=== PATIENT | female | born 1985 | race Caucasian/White ===

== ENCOUNTER 2023-01-01 08:40 | Outpatient (OUT) | payer BC, SELFPAY ==
[2023-01-01 09:19] LABS: Basophils Absolute Auto 0.1 10^3/uL (0.0-0.1); Basophils Percent Auto 1.1 % (0.2-2.0); Eosinophils Absolute Auto 0.3 10^3/uL (0.0-0.7); Eosinophils Percent Auto 4.6 % (0.9-7.0); Hematocrit 40.8 % (36.0-48.0); Hemoglobin 12.3 g/dL (12.0-16.0); Immature Granulocytes Abs Auto 0.06 10^3/uL (0.00-0.03); Immature Granulocytes Pct Auto 0.8 % (0.0-0.5); Lymphocytes Absolute Auto 1.5 10^3/uL (1.2-3.8); Mean Corpuscular HGB Conc 30.1 g/dL (29.9-35.2); Mean Corpuscular Hemoglobin 19.6 pg (26.7-34.0); Mean Corpuscular Volume 65.2 fL (81.0-99.0); Mean Platelet Volume 9.3 fL (9.5-13.5); Monocytes Absolute Auto 0.6 10^3/uL (0.3-0.8); Monocytes Percent Auto 8.7 % (1.7-12.0); Neutrophils Absolute Auto 4.8 10^3/uL (1.4-6.5); Neutrophils Percent Auto 64.8 % (43.0-75.0); Platelet Count 387 10^3/uL (150-450); Red Blood Count 6.26 10^6/uL (4.20-5.40); Red Cell Distribution Width 15.8 % (11.0-15.0); White Blood Count 7.3 10^3/uL (4.0-11.0)
[2023-01-01 09:43] LABS: Estimated Average Glucose 108 mg/dL; Glycohemoglobin A1C 5.4 % (4.5-6.2)
[2023-01-01 10:14] LABS: Alanine Aminotransferase 32 U/L (14-59); Albumin Globulin Ratio 0.9; Albumin Level 3.8 g/dL (3.4-5.0); Alkaline Phosphatase 62 U/L (46-116); Anion Gap 13.1; Aspartate Amino Transferase 20 U/L (15-37); BUN Creatinine Ratio 11.8; Bilirubin Total 0.4 mg/dL (0.2-1.0); Calcium 9.3 mg/dL (8.5-10.1); Carbon Dioxide 26.5 mmol/L (21.0-32.0); Chloride 101 mmol/L (98-107); Chol HDL Ratio 2.5; Cholesterol 189 mg/dL (<=200); Estimated GFR (African America >60 (>=60); Estimated GFR (Non-African Ame >60 (>=60); Globulin 4.4 g/dL; Glucose 92 mg/dL (74-106); HDL Cholesterol 77 mg/dL (40-60); Potassium 3.6 mmol/L (3.5-5.1); Sodium 137 mmol/L (136-145); Thyroid Stimulating Hormone 3.837 uIU/mL (0.358-3.740); Total Protein 8.2 g/dL (6.4-8.2); Triglycerides 180 mg/dL (<=150)
== END 2023-01-01 08:41 | disposition home or self-care (01) ==
LOC: LAB 08:40
PROVIDERS: PCP Psychiatry & Neurology Neurology; Visit Provider Nurse Practitioner
DX: Z00.00 Encounter for general adult medical examination without abnormal findings (principal)
CPT/HCPCS: 36415; 80053; 80061; 83036; 84443; 85025

== ENCOUNTER 2023-02-27 13:32 | Outpatient (REF) | payer BC, SELFPAY ==
[2023-03-02 17:09] LABS: Age Gdln ACOG Testing Note (.); HPV Aptima Negative (Negative); IGP, Aptima HPV, rfx 16/18,45 Note (.)
== END 2023-02-27 13:33 | disposition home or self-care (01) ==
LOC: LAB 13:32
PROVIDERS: PCP Psychiatry & Neurology Neurology; Visit Provider Nurse Practitioner
DX: Z01.419 Encounter for gynecological examination (general) (routine) without abnormal findings (principal)
CPT/HCPCS: 87624; G0145

== ENCOUNTER 2023-03-13 14:13 | Outpatient (OUT) | payer BC, SELFPAY ==
[2023-03-13 14:52] LABS: Free T4 0.98 ng/dL (0.76-1.46)
[2023-03-13 14:59] LABS: Free T3 4.15 pg/mL (2.18-3.98); Thyroid Stimulating Hormone 1.009 uIU/mL (0.358-3.740)
== END 2023-03-13 14:14 | disposition home or self-care (01) ==
LOC: LAB 14:13
PROVIDERS: PCP Nurse Practitioner; Visit Provider Nurse Practitioner
DX: E03.9 Hypothyroidism, unspecified (principal)
CPT/HCPCS: 36415; 84439; 84443; 84481

== ENCOUNTER 2023-04-22 12:16 | Outpatient (OUT) | payer BC, SELFPAY ==
--- NOTE | 2023-04-22 12:18 | XR_ITS ---
The [address] [address] Patient Name: STEVEN DE LA TORRE MRN: [id number] date: 1985 Sex: F Assigned Patient Location: RAD Current Patient Location: RAD Accession/Order Number: [id number] Exam Date: 04/22/2023 12:22 Report Date: 04/22/2023 12:48 At the request of: MEGAN RODRÍGUEZ Procedure: XR abdomen 1V EXAM: XR abdomen 1V HISTORY: Ureteral Stone With Hydronephrosis COMPARISON: Single view abdomen study dated 03/13/2021 TECHNIQUE: AP supine view of the abdomen was obtained. FINDINGS: An approximately 6 x 2 mm calcification overlying the mid right kidney fairly similar to prior studies suspect for right renal calculus. Interval round 4 mm calcific density overlying the inferior left kidney which may represent left renal calculus. No obvious opaque ureteral or bladder calculi. Bowel gas pattern appears grossly nonspecific. Bony structures appear grossly intact. XR/XR abdomen 1V IMPRESSION: Findings suggesting calcified right renal calculus similar to the prior study. Possibility of interval calcified left renal calculus. Follow-up as needed. Electronically authenticated by: MABEL GOMEZ Date: 04/22/2023 12:48
== END 2023-04-22 12:17 | disposition home or self-care (01) ==
LOC: RAD 12:17
PROVIDERS: PCP Nurse Practitioner; Visit Provider Physician Assistant
DX: N13.2 Hydronephrosis with renal and ureteral calculous obstruction (principal); N20.0 Calculus of kidney
CPT/HCPCS: 74018

== ENCOUNTER 2024-02-08 09:11 | Outpatient (OUT) | payer BC, SELFPAY ==
--- OUTSIDE RECORDS SUMMARY | 2024-02-08 09:12 | XMS_ITS | CCD ---
Author Organization [facility] Care Team Providers Care Chalk Tester Name Role Phone YOVANI, DR SCAR Cervantes Primary Care Unavailable DESI FRASER, DR LISBET Akins Admitting Galileo KAYE JR, DR LISBET Akins Attending Unavailedie PINA, DR SCAR Cervantes Consulting Unavailable FANTASMA, DR RACHEL Broussard Consulting Unavailable DESI FRASER, DR LISBET Akins Consulting Galileo PINA, DR SCAR Cervantes Primary Care Unavailable DESI FRASER, DR LISBET Akins Admitting Galileo KAYE JR, DR LISBET Akins Consulting Galileo KAYE JR, DR LISBET Akins Attending UnavailHAYLEY Montemayor Admitting Unavailable YOVANI, DR SCAR Cervantes Primary Care Unavailable DESI FRASER, DR LISBET Akins Consulting UnavailHAYLEY Montemayor Attending Unavailable HAYLEY THOMAS Consulting Unavailable HAYLEY THOMAS Attending Unavailable WILLIAM, HAYLEY Admitting Unavailable HAYLEY THOMAS Consulting Unavailable YOVANI, DR SCAR Cervantes Primary Care Unavailable YOVANI, DR SCAR Cervantes Primary Care Unavailable KIKA, DR TAISHA Nicole Consulting Unavailable DESI FRASER, DR LISBET Akins Admitting Galileo KAYE JR, DR LISBET Akins Attending Galileo KAYE JR, DR LISBET Akins Consulting Galileo KAYE JR, DR LISBET Akins Attending Unavailedie KAYE JR, DR LISBET Akins Admitting Unavailedie PINA, DR SCAR Cervantes Primary Care Unavailable KIKA, DR TAISHA Nicole Consulting Unavailable DESI FRASER, DR LISBET Akins Consulting YOLANDA Sanchez Consulting Unavailable JUAN DIEGO VARGAS Consulting Unavailable DESI FRASER, DR LISBET Akins Attending Unavailedie KAYE JR, DR LISBET Akins Admitting Unavailedie KAYE JR, DR LISBET Akins Consulting Galileo PINA, DR SCAR Cervantes Primary Care Unavailable BILLY URIAS Consulting Unavailable JUAN DIEGO VARGAS Consulting Unavailable YOVANI, DR SCAR Cervantes Primary Care Unavailable DESI FRASER, DR LISBET Akins Attending Unavailedie KAYE JR, DR LISBET Akins Admitting Unavailedie KAYE JR, DR LISBET Akins Consulting LOS Santillan Attending Unavailable JO-ANN, LOS Admitting Unavailable Allan Eaton Consulting Unavailable YOVANI, DR SCAR Cervantes Primary Care Unavailable LOS BUSCH Consulting Unavailable HAYLEY THOMAS Attending Unavailable HAYLEY THOMAS Admitting Unavailable YOVANI, DR SCAR Cervantes Primary Care Unavailable FANTASMA, DR RACHEL Broussard Consulting Unavailable HAYLEY THOMAS Consulting Unavailable DESI FRASER, DR LISBET Akins Attending Unavailedie KAYE JR, DR LISBET Akins Admitting Unavailedie KAYE JR, DR LISBET Akins Consulting Unavailedie PINA, DR SCAR Cervantes Primary Care Unavailable SEAN MCCABE Consulting Unavailable WILLIAM, HAYLEY Admitting Unavailable FANTASMA, DR RACHEL Broussard Consulting Unavailable YOVANI, DR SCAR Cervantes Primary Care Unavailable WILLIAM, HAYLEY Attending Unavailable HAYLEY THOMAS Consulting Unavailable YOVANI, DR SCAR Cervantes Attending Unavailable YOVANI, DR SCAR Cervantes Admitting Unavailable YOVANI, DR SCAR Cervantes Primary Care Unavailable YOVANI, DR SCAR Cervantes Consulting Unavailable Becca Anguiano Primary Care Physician Unavailable Primary Care Provider UnavailKEIKO Palumbo Attending Unavailable Annmarie, MITCH Akins Attending Unavailable Annmarie, MITCH Akins Attending Unavailable KEIKO RODRÍGUEZ Attending Unavailable AURORA TURNER Attending Unavailable Allergies Allergy Classification Reported Allergen(s) Allergy Type Date of Onset Reaction(s) Facility (1 source) No Known Medication Allergies; Translations: [No Known Medication Allergies] Propensity to adverse reactions (disorder) [facility] Medications Current Medications Medication Drug Class(es) Dates Sig (Normalized) Sig (Original) acetaZOLAMIDE 250 mg oral tablet (3 sources) Carbonic Anhydrase Inhibitor Start: 04-08-2019 take 2 tablets by mouth twice daily acetaZOLAMIDE 250 mg Tab 500 mg = 2 tab(s), Oral, BID Start Date: 04/08/19 Status: Ordered adapalene/benzoyl peroxide/clindamycin 0.3%-2.5%-1% topical gel (1 source) Start: 06-20-2023 apply 45 g topically once daily adapalene/benzoyl peroxide/clindamyc in 0.3%-2.5%-1% topical gel See Instructions, 45 gm, Refill(s) 1, apply thin layer to affected areas once daily after washing, [facility]/pharmacy #[id number], 170, cm, 04/23/23 8:29:00 EST, Height/Length Dosing, 107, kg, 04/23/23 8:29:00 EST, Weight Dosing Start Date: 06/20/23 Status: Ordered amphetamine aspartate 5 mg / amphetamine sulfate 5 mg / dextroamphetamine saccharate 5 mg / dextroamphetamine sulfate 5 mg oral tablet (5 sources) Central Nervous System Stimulant Start: 11-11-2023 take 1 tablet by mouth once daily amphetamine-dextro amphetamine 20 mg Tab See Instructions, TAKE 1 TABLET BY MOUTH EVERYDAY AT 2PM, # 90 tab(s), Refills(s) 0, Pharmacy: [facility]/pharmacy #[id number], 170, cm, 04/23/23 8:29:00 EST, Height/Length Dosing, 107, kg, 04/23/23 8:29:00 EST, Weight Dosing Start Date: 11/11/23 Status: Ordered Start: 11-11-2023 take 1 capsule by mo ut once daily in the morning Adderall XR 30 mg Cap-ER 30 mg = 1 cap(s), Oral, qAM, # 90 cap(s), Refills(s) 0, Pharmacy: [facility]/pharmacy #[id number], 170, cm, 04/23/23 8:29:00 EST, Height/Length Dosing, 107, kg, 04/23/23 8:29:00 EST, Weight Dosing Start Date: 11/11/23 Status: Ordered Start: 04-04-2023 take 1 capsule by mo [facility] once daily in the morning Adderall XR 30 mg Cap-ER 30 mg = 1 cap(s), Oral, qAM, # 90 cap(s), Refills(s) 0, Pharmacy: [facility]/pharmacy #[id number], 169, cm, 02/27/23 11:32:00 EDT, Height/Length Dosing, 109.7, kg, 02/27/23 11:32:00 EDT, Weight Dosing Start Date: 04/04/23 Status: Ordered Start: 09-28-2022 take 1 tablet by zach once daily amphetamine-dextroamphetamine 20 mg Tab See Instructions, TAKE 1 TABLET BY MOUTH EVERYDAY AT 2PM, # 90 tab(s), Refills(s) 0, Pharmacy: [facility]/pharmacy #[id number], 169, cm, 02/27/23 11:32:00 EDT, Height/Length Dosing, 109.7, kg, 02/27/23 11:32:00 EDT, Weight Dosing Start Date: 04/04/23 Status: Ordered 24 hr buPROPion hydrochloride 150 mg extended release oral tablet (1 source) Aminoketone Start: 09-28-2022 End: 12-16-2023 take 1 tablet by mouth every twenty-four hours Wellbutrin XL 150 MG 24 hr tablet Take 150 mg by mouth. 0 09/28/2022 12/16/2023 Active cetirizine hydrochloride 10 mg oral tablet (3 sources) Histamine-1 Receptor Antagonist Start: 04-23-2023 cetirizine 10 mg Tab Refills(s) 0 Start Date: 04/23/23 Status: Ordered Start: 04-19-2023 take 2 tablets by mo [facility] once daily in the morning cetirizine (ZyrTEC) 10 MG tablet Indications: Flexural atopic dermatitis TAKE 2 TABLETS BY MOUTH EVERY MORNING AND 2 TABLETS AT BEDTIME 360 tablet 3 04/19/2023 Active 1 ml erenumab-aooe 140 mg/ml auto-injector (2 sources) Start: 09-28-2022 Aimovig SureClick Autoinjector-aooe 140 mg/mL subcutaneous solution 140 mg, Refills(s) 0 Start Date: 09/28/22 Status: Ordered escitalopram 10 mg oral tablet (3 sources) Serotonin Reuptake Inhibitor Start: 09-24-2023 take 1 tablet by mouth once daily escitalopram 10 mg Tab 10 mg = 1 tab(s), Oral, Daily, # 90 tab(s), Refills(s) 0, Pharmacy: [facility]/pharmacy #[id number], 170, cm, 04/23/23 8:29:00 EST, Height/Length Dosing, 107, kg, 04/23/23 8:29:00 EST, Weight Dosing Start Date: 09/24/23 Status: Ordered Start: 04-04-2023 take 1 tablet by zach once daily escitalopram 10 mg Tab 10 mg = 1 tab(s), Oral, Daily, # 30 tab(s), Refills(s) 0, Pharmacy: [facility]/pharmacy #[id number], 169, cm, 02/27/23 11:32:00 EDT, Height/Length Dosing, 109.7, kg, 02/27/23 11:32:00 EDT, Weight Dosing Start Date: 04/04/23 Status: Ordered Start: 04-01-2023 take 1 tablet by zach th once daily escitalopram 5 mg oral tablet 5 mg = 1 tab(s), Oral, Daily, # 30 tab(s), Refills(s) 5, Pharmacy: [facility]/pharmacy #[id number], 169, cm, 02/27/23 11:32:00 EDT, Height/Length Dosing, 109.7, kg, 02/27/23 11:32:00 EDT, Weight Dosing Start Date: 04/01/23 Status: Ordered 1.5 ml fremanezumab-vfrm 150 mg/ml auto-injector (1 source) Start: 12-19-2022 Ajovy 225 MG/1 .5ML auto-injector INJECT SUBCUTANEOUSLY ONCE A MONTH DIRECTED 0 12/19/2022 Active hydrocortisone 25 mg/ml topical cream (1 source) Corticosteroid Start: 06-21-2023 hydrocortisone 2.5 % cream Indications: Flexural atopic dermatitis APPLY WET CLOTH TO SKIN AROUND EYE FOR 5 MIN. THEN APPLY CREAM. DO THIS TWICE DAILY FOR 28 DAYS 28.35 g 3 06/21/2023 Active Start: 06-21-2023 hydrocortisone 2.5 % cream Indications: Flexural atopic dermatitis APPLY WET CLOTH TO SKIN AROUND EYE FOR 5 MIN. THEN APPLY CREAM. DO THIS TWICE DAILY FOR 28 DAYS 28.35 g 3 06/21/2023 Active levothyroxine sodium 0.1 mg oral tablet (1 source) l-Thyroxine levothyroxine (Synthroid) 100 MCG tablet 1 (one) time each day at the same time. 0 Active thyroid (group home) 90 mg oral tablet (2 sources) Start: 06-21-2023 take 1 tablet by mouth once daily [place] Thyroid 90 mg Tab 90 mg = 1 tab(s), Oral, Daily, # 90 tab(s), Refills(s) 3, Pharmacy: [facility]/pharmacy #[id number], 170, cm, 04/23/23 8:29:00 EST, Height/Length Dosing, 107, kg, 04/23/23 8:29:00 EST, Weight Dosing Start Date: 06/21/23 Status: Ordered Start: 04-08-2019 take 1 tablet by mouth once da young [place] Thyroid 90 mg Tab 90 mg = 1 tab(s), Oral, Daily Start Date: 04/08/19 Status: Ordered Completed/Discontinued Medications Medication Drug Class(es) Dates Sig (Normalized) Sig (Original) drospirenone / Ethinyl Estradiol (3 sources) Progestin, Estrogen Start: 03-12-2023 take 1 tablet by mouth once daily drospirenone-ethi nyl estradiol 3 mg-0.03 mg Tab 1 tab(s), Oral, Daily, 84 tab(s), Refill(s) 3, [facility]/pharmacy #[id number], 169, cm, 02/27/23 11:32:00 EDT, Height/Length Dosing, 109.7, kg, 02/27/23 11:32:00 EDT, Weight Dosing Start Date: 03/12/23 Status: Ordered Start: 12-17-2022 drospirenone-e thinyl estradiol (Lakia, Ocella) 3-0.03 MG tablet Take 1 tablet by mouth in the morning. 0 12/17/2022 Active fluconazole 150 mg oral tablet (1 source) Azole Antifungal Start: 07-18-2023 take 4 tablets by mouth once Diflucan 150 mg Tab 150 mg = 1 tab(s), Oral, Once, take 1 tab on day one and 1 tab on day four, # 2 tab(s), Refills(s) 1, Pharmacy: [facility]/pharmacy #[id number], 170, cm, 04/23/23 8:29:00 EST, Height/Length Dosing, 107, kg, 04/23/23 8:29:00 EST, Weight Dosing Start Date: 07/18/23 Status: Ordered predniSONE 20 mg oral tablet (2 sources) Start: 12-21-2022 take 1 tablet by mouth once daily predniSONE 20 mg Tab 20 mg = 1 tab(s), Oral, As Directed, Take two tabs by mouth daily for three days, then one tab daily for three days, # 9 tab(s), Refills(s) 0, Pharmacy: [facility]/pharmacy #[id number], 169, cm, 12/21/22 14:35:00 EDT, Height/Length Dosing, 103.7, kg, 12/21/22 14:35:00 EDT, Weight Dosing Start Date: 12/21/22 Status: Ordered Problems Active Problems Problem Classification Problem Date Documented Date Episodic/Chronic Abdominal pain (11 sources) Pelvic and perineal pain; Translations: [Unspecified abdominal pain] Onset: 07-14-2020 Episodic Allergic reactions (2 sources) Flexural atopic dermatitis; Translations: [Other atopic dermatitis] Onset: 12-28-2022 06-21-2023 Chronic Anxiety disorders (2 sources) Anxiety 02-27-2023 Chronic Attention-deficit, conduct, and disruptive behavior disorders (2 sources) Adult attention deficit hyperactivity disorder 04-08-2019 Chronic Attention-deficit, conduct, and disruptive behavior disorders (2 sources) Attention deficit hyperactivity disorder 12-24-2022 Chronic Biliary tract disease (4 sources) Biliary calculus; Translations: [Chronic cholecystitis with calculus] 04-20-2019 Episodic Calculus of urinary tract (12 sources) Calculus of kidney; Translations: [Calculus of ureter] Onset: 08-10-2020 Episodic Deficiency and other anemia (2 sources) Thalassemia 04-08-2019 Chronic Deficiency and other anemia (2 sources) Anemia 07-15-2020 Episodic Esophageal disorders (1 source) Gastro-esophageal reflux disease without esophagitis; Translations: [GERD WITHOUT ESOPHAGITIS] Onset: 07-22-2020 Chronic Genitourinary symptoms and ill-defined conditions (1 source) Encounter for fitting and adjustment of urinary device; Translations: [END FITTING AND ADJUST URINARY DEVICE] Onset: 08-15-2020 Chronic Genitourinary symptoms and ill-defined conditions (3 sources) Asymptomatic microscopic hematuria; Translations: [Nocturia] Onset: 08-15-2020 09-09-2020 Episodic Nausea and vomiting (3 sources) Nausea with vomiting, unspecified; Translations: [Nausea and vomiting] Onset: 07-22-2020 04-20-2019 Episodic Other diseases of kidney and ureters (2 sources) Hydronephrosis due to ureteral obstruction 07-15-2020 Episodic Other nervous system disorders (2 sources) Benign intracranial hypertension 04-08-2019 Chronic Other nutritional; endocrine; and metabolic disorders (1 source) Obesity, unspecified; Translations: [OBESITY UNSPECIFIED] Onset: 08-15-2020 Chronic Other nutritional; endocrine; and metabolic disorders (1 source) Body mass index (BMI) 35.0-35.9, adult; Translations: [BODY MASS INDEX BMI 35.0-35.9 ADULT] Onset: 08-15-2020 Chronic Other nutritional; endocrine; and metabolic disorders (1 source) Body mass index (BMI) 36.0-36.9, adult; Translations: [BODY MASS INDEX BMI 36.0-36.9 ADULT] Onset: 07-22-2020 Chronic Other nutritional; endocrine; and metabolic disorders (2 sources) Obese class II 04-20-2019 Chronic Other screening for suspected conditions (not mental disorders or infectious disease) (4 sources) Encounter for screening for malignant neoplasm of cervix; Translations: [ENC SCREENING MALIG NEOPLASM CERV] Onset: 12-26-2020 Episodic Thyroid disorders (9 sources) Hypothyroidism, unspecified; Translations: [Hypothyroidism] Onset: 08-15-2020 Chronic Unclassified (1 source) CONTACT W/AND (SUSP) EXPOS COVID-19; Translations: [CONTACT W/AND (SUSP) EXPOS COVID-19] Onset: 08-11-2020 Unclassified (2 sources) Asymptomatic microscopic hematuria 07-15-2020 Unclassified (2 sources) Cancer cervix screening status 02-27-2023 Unclassified (4 sources) Patient encounter status 02-27-2023 Past or Other Problems Problem Classification Problem Date Documented Date Episodic/Chronic Other diseases of kidney and ureters (4 sources) Hydronephrosis with renal and ureteral calculous obstruction; Translations: [HYDRONPHROS RENL AND URETRL CALCUL OBST] Onset: 07-15-2020 Episodic Residual codes; unclassified (4 sources) Other specified postprocedural states; Translations: [OTH SPECIFIED POSTPROCEDURAL STATES] Onset: 09-09-2020 Episodic Residual codes; unclassified (1 source) Acquired absence of other specified parts of digestive tract; Translations: [ACQ ABSENCE OTH PART DIGESTV TRACT] Onset: 08-15-2020 Episodic Urinary tract infections (4 sources) Urinary tract infection, site not specified; Translations: [UTI SITE NOT SPECIFIED] Onset: 08-06-2020 Episodic Results Test Name Value Interpretation Reference Range Facility [facility] 05-06-2023 [facility] [id number] .00TIFF [facility] [id number] .00TIFF Normal [facility] [id number] .00TIFF [facility] 04-24-2023 Forms [id number] .00TIFF [facility] Ambulatory Visit Summaryon 1 06-24-2022 Ambulatory Visit Summary [place]ON [place] :1985 Visit Date:04/23/2023 Ambulatory Visit Instructions Your Diagnosis Kidney stones Flank pain Tests Performed Urnls Dip Stick Auto w/o Microscopy POC 47830 XR Abdomen 1 View -- Results Pending -- Please visit your patient portal for your results or contact your primary care physician. Your Care Team Attending Physician - KEIKO RODRÍGUEZ PA-C Primary Care Physician - Becca Cruz This Is Your Medications List Contact prescribing physician if questions or concerns acetaZOLAMIDE (acetaZOLAMIDE 250 mg Tab) amphetamine-dextroamp hetamine (Adderall XR 30 mg Cap-ER) amphetamine-dextroamp hetamine (amphetamine-dextroam phetamine 20 mg Tab) cetirizine (cetirizine 10 mg Tab) drospirenone-ethinyl estradiol (drospirenone-ethinyl estradiol 3 mg-0.03 mg Tab) erenumab (Aimovig SureClick Autoinjector-aooe 140 mg/mL subcutaneous solution) escitalopram (escitalopram 10 mg Tab) escitalopram (escitalopram 5 mg oral tablet) predniSONE (predniSONE 20 mg Tab) thyroid desiccated ([place] Thyroid 90 mg Tab) Procedures Performed ESWL of kidney (08/10/2020), Retrograde pyelogram (07/15/2020), Laparoscopic cholecystectomy (04/22/2019), Acute tear of meniscus of left knee (08/12/2018), ACL - Anterior cruciate ligament rupture (11/15/2017), Caesarean section. Discharge Vitals Height 170 cm Height 67 in Weight 107 kg Weight 235.4 lb BMI 37.02 What to do next Scheduled Follow-Up Appointments Saturday 8:30 AM EDT With: KEIKO RODRÍGUEZ PA-C Where: [facility] Patient Educationon 04-23-20 Patient Education Nephrology Dietary Guidelines to Help Prevent Kidney Stones Kidney stones are deposits of minerals and salts that form inside your kidneys. Your risk of developing kidney stones may be greater depending on your diet, your lifestyle, the medicines you take, and whether you have certain medical conditions. Most people can lower their risks of developing kidney stones by following these dietary guidelines. Your dietitian may give you more specific instructions depending on your overall health and the type of kidney stones you tend to develop. What are tips for following this plan? Reading food labels ? Choose foods with no salt added or low-salt labels. Limit your salt (sodium) intake to less than 1,500 mg a day. ? Choose foods with calcium for each meal and snack. Try to eat about 300 mg of calcium at each meal. Foods that contain 200?500 mg of calcium a serving include: ? 8 oz (237 mL) of milk, calcium-fortifiednon- dairy milk, and calcium-fortifiedfrui t juice. Calcium-fortified means that calcium has been added to these drinks. ? 8 oz (237 mL) of kefir, yogurt, and soy yogurt. ? 4 oz (114 g) of tofu. ? 1 oz (28 g) of cheese. ? 1 cup (150 g) of dried figs. ? 1 cup (91 g) of cooked broccoli. ? One 3 oz (85 g) can of sardines or mackerel. Most people need 1,000?1,500 mg of calcium a day. Talk to your dietitian about how much calcium is recommended for you. Shopping ? Buy plenty of fresh fruits and vegetables. Most people do not need to avoid fruits and vegetables, even if these foods contain nutrients that may contribute to kidney stones. ? When shopping for convenience foods, choose: ? Whole pieces of fruit. ? Pre-made salads with dressing on the side. ? Low-fat fruit and yogurt smoothies. ? Avoid buying frozen meals or prepared deli foods. These can be high in sodium. ? Look for foods with live cultures, such as yogurt and kefir. ? Choose high-fiber grains, such as whole-wheat breads, oat bran, and wheat cereals. Cooking ? Do not add salt to food when cooking. Place a salt shaker on the table and allow each person to add their own salt to taste. ? Use vegetable protein, such as beans, textured vegetable protein (TVP), or tofu, instead of meat in pasta, casseroles, and soups. Meal planning ? Eat less salt, if told by your dietitian. To do this: ? Avoid eating processed or pre-made food. ? Avoid eating fast food. ? Eat less animal protein, including cheese, meat, poultry, or fish, if told by your dietitian. To do this: ? Limit the number of times you have meat, poultry, fish, or cheese each week. Eat a diet free of meat at least 2 days a week. ? Eat only one serving each day of meat, poultry, fish, or seafood. ? When you prepare animal proteins, cut pieces into small portion sizes. For most meat and fish, one serving is about the size of the palm of your hand. ? Eat at least five servings of fresh fruits and vegetables each day. To do this: ? Keep fruits and vegetables on hand for snacks. ? Eat one piece of fruit or a handful of berries with breakfast. ? Have a salad and fruit at lunch. ? Have two kinds of vegetables at dinner. ? You may be told to limit foods that are high in a substance called oxalate. These include: ? Spinach (cooked), rhubarb, beets, sweet potatoes, and [place] chard. ? Peanuts. ? Potato chips, welsh fries, and baked potatoes with skin on. ? Nuts and nut products. ? Chocolate. ? If you regularly take a diuretic medicine, make sure to eat at least 1 or 2 servings of fruits or vegetables that are high in potassium each day. These include: ? Avocado. ? Banana. ? Lamar, prune, carrot, or tomato juice. ? Baked potato. ? Cabbage. ? Beans and split peas. Lifestyle ? Drink enough fluid to keep your urine pale yellow. This is the most important thing you can do. Spread your fluid intake throughout the day. ? If you drink alcohol: ? Limit how much you have to: ? 0?1 drink a day for women who are not . ? 0?2 drinks a day for men. ? Know how much alcohol is in your drink. In the [place] one drink equals one 12 oz bottle of beer (355 mL), one 5 oz glass of wine (148 mL), or one 1? oz glass of hard liquor (44 mL). ? Lose weight if told by your health care provider. Work with your dietitian to find an eating plan and weight loss strategies that work best for you. General information ? Talk to your health care provider and dietitian about taking daily supplements. Depending on your health and the cause of your kidney stones, you may be told: ? Do not take high-dose supplements of vitamin C (1,000 mg a day or more). ? To take a calcium supplement. ? To take a daily probiotic supplement. ? To take other supplements such as magnesium, fish oil, or vitamin B6. ? Take [id number] and prescription medicines only as told by your health care provider. These include supplements. What foods sh (more content not included)... [facility] Office/Clinic Noteon 04-23-2023 Urology Office/Clinic Note Chief Complaint 2yr KUB HPI Staff Former DLS pt 2yr KUB DX: Ureteral Stone w/[place] Last stone surgery 08/10/20 ([facility]) *No Urology Meds Current dull achy discomfort around BL flank areas. Denies pain/burning and visible blood in urine. Denies difficulty voiding. NO concerns at this time Did pass stone December 20.. Did have sudden pain accompanied with chills and sweats prior to passing. History of Present Illness staff HPI reviewed and agree. Review of Systems PHQ Score Initial Depression Screen Score: 0 SCORE no fever, chills, malaise, myalgia. no rash/lesions. no chest pain, palpitations, or SOB. no abdominal pain, nausea, vomiting. no unilateral calf swelling, redness, pain Physical Exam Vitals & Measurements HT: 67 in HT: 170 cm WT: 107 kg WT: 235.4 lb BMI: 37.02 General: nontoxic, NAD Mouth: moist mucosa Lungs: normal respiratory effort Cardio: regular rate, good distal perfusion Abdomen: nondistended, no suprapubic distention or tenderness, no CVA tenderness Neurologic: Grossly normal Skin: No rashes or suspicious lesions Assessment/Plan Former Dr. Kaye pt 1. Kidney stones (N20.0: Calculus of kidney) S/p ESWL 08/10/20. Stone analysis 08/12/20 - 90% Hydroxyapatite, 10% CaHPO4. KUB 09/12/20 [facility] - no stones id'd. Per EMR pt was to have repeat lithotripsy 09/14/20 but was canceled due to pt passing stone 09/13/20. KUB 03/13/21 - linear stones overlying the R renal shadow measuring up to 0.6 cm. Reports she passed a stone on 12/20/22. Had sudden pain with chills and sweating. KUB 04/22/23 [facility] - 6 x 2 mm stone overlying mid R kidney similar to prior studies. Interval round 4mm stone overlying inferior L kidney. No ureteral or bladder stones id'd. Discussed imaging results. Now has questionable bilat renal stones. Reports she drinks 30-40oz per day. Feels her stone formation is related to her diet. Advised pt to increase fluid intake and limit dark colored drinks. Discussed pt to complete a metabolic workup to evaluate reason for stone formation. Pt agrees with plan. UA today negative for blood and infection. Will continue to monitor stones. -Complete met w/u prior to appt. review results at next appt. -KUB @ [facility] in 6 mos 2. Flank pain (R10.9: Unspecified abdominal pain) Reports dull, achy bilateral flank pain. mild, intermittent. has been going on for several months. unlikely to be related to her small stones. Follow-up With When Contact Information ANNE MICHELLE, KEIKO Cervantes, URL [address] [place] [address] [phone] Additional Instructions: 6 mos w/ KUB & met w/u Patient Education Dietary Guidelines to Help Prevent Kidney Stones Documentation recorded by the yaneth Malave accurately reflects the services(s) I performed and decisions made by me. Authenticated by Keiko Rodríguez PA-C on 04/23/2023 09:09:42. IMarianela, personally scribed for Keiko Rodríguez PA-C on 04/23/2023 09:03:20. . Problem List/Past Medical History Ongoing ADHD Adult ADHD Anemia Anxiety Asymptomatic microscopic hematuria Cervical cancer screening Chronic cholecystitis with calculus Flank pain Hypothyroid Hypothyroidism Kidney stones Nausea and vomiting Nocturia Obesity, Class II, BMI 35-39.9 Pseudotumor cerebri Skin cancer screening Symptomatic cholelithiasis Thalassemia Ureteral stone with hydronephrosis Well woman exam Historical No qualifying data Procedure/Surgical History ESWL of kidney (08/10/2020), Retrograde pyelogram (07/15/2020), Laparoscopic cholecystectomy (04/22/2019), Acute tear of meniscus of left knee (08/12/2018), ACL - Anterior cruciate ligament rupture (11/15/2017), Caesarean section. Medications acetaZOLAMIDE 250 mg Tab, 500 mg= 2 tab(s), Oral, BID Adderall XR 30 mg Cap-ER, 30 mg= 1 cap(s), Oral, qAM Aimovig SureClick Autoinjector-aooe 140 mg/mL subcutaneous solution, 140 mg amphetamine-dextroamp hetamine 20 mg Tab, See Instructions Cat Spring Thyroid 90 mg Tab, 90 mg= 1 tab(s), Oral, Daily cetirizine 10 mg Tab drospirenone-ethinyl estradiol 3 mg-0.03 mg Tab, 1 tab(s), Oral, Daily, 3 refills escitalopram 10 mg Tab, 10 mg= 1 tab(s), Oral, Daily escitalopram 5 mg oral tablet, 5 mg= 1 tab(s), Oral, Daily, 5 refills predniSONE 20 mg Tab, 20 mg= 1 tab(s), Oral, As Directed Allergies No Known Medication Allergies Social History Alcohol - Low Risk, 04/08/2019 Substance Abuse - Denies Substance Abuse, 04/08/2019 Tobacco Never (less than 100 in lifetime) Tobacco Use:. Never Smokeless Tobacco Use:. Household tobacco concerns: No. Yes, 04/23/2023 Family History Anemia: Mother. Hypertension: Mother. Immunizations Vaccine Date Status SARS-CoV-2 (COVID-19) mRNA-1273 vaccine 07/07/2021 Recorded diphtheria/pertussis, acel/tetanus adult 01/13/2021 Recorded SARS-CoV-2 (COVID-19) mRNA-1273 vaccine 01/13/2021 Recorded SARS-CoV-2 (COVID-19) mRNA-1 (more content not included)... [facility] Comment on above: Result Comment: Elec tronically Signed By: KEIKO RODRÍGUEZ PA-C\.br\Date and Time Signed: 04/23/23 09:11 EST\.br\Electronically Co-Signed By: Marianela Malave\.br\Date and Time Co-Signed: 04/23/23 09:03 EST Physician Orderon 04-22-2023 Physician Order [id number] .00TIFF [facility] Lab Reportson 03-15-2023 Lab Reports [id number] .00TIFF [facility] Report[facility] 03-06-2023 Lab Reports [id number] .00TIFF [facility] Family Medicine Office/Clini c Noteon 02-27-2023 Family Medicine Office/Clinic Note HPI Staff Nixon is a 37 year old female presenting for wellness visit Health Maintenance: Colonoscopy: no Dexa: no Mammo: no Pap: 04/2022 Last Labs: 01/01/23 Immunizations: Flu: due Woman check up: Last pap: 05/16/22 Last Fareed: Results of lap pap: normal [facility] was it done: [facility] hx: # of pregnancies..2. abortions... live births.2.. living children...2 menstrual cycle (normal,heavy,ect): normal History of STD: no Do you want tested for STD today: no Vaginal discharge, odor, itching: no Self breast exam at home? yes Hx of breast, cervical or uterine cancer in the family: yes Questions/Concerns: pt would like skin checked History of Present Illness pt presents today for well woman exam and skin cancer check Review of Systems PHQ Score Initial Depression Screen Score: 0 Constitutional: No fever, No chills, No sweats, No weakness. No Weight change; No fatigue. Skin: No rash, No lesions. ENMT: No ear pain, No sore throat, No congestion. Respiratory: No shortness of breath, No cough, No orthopnea, No wheezing. Cardiovascular: No chest pain, No palpitations, No peripheral edema. Gastrointestinal: No nausea, No vomiting, No diarrhea, No GI bleeding. Genitourinary: No dysuria, No hematuria, No discharge, No pain. Gynecology: No abnormal vaginal discharge, No vaginal itching/burning, No vaginal dryness, No painful periods, No abnormal bleeding, No pelvic pain, No painful intercourse, No hair loss/growth, No hot flashes Breast: No breast pain, No skin changes, No masses/lumps, No nipple discharge. Musculoskeletal: No back pain, No trauma. Neurological: No headache, No dizziness, No numbness, No weakness. Psychiatric: No sleeping problems, No irritability, No mood swings/depression. Heme/Lymph: No bleeding tendency, No bruising tendency, No petechiae, No swollen. Physical Exam Vitals & Measurements HR: 78(Peripheral) RR: 18 BP: 160/104 SpO2: 98% HT: 67 in HT: 169 cm WT: 109.7 kg WT: 241.34 lb BMI: 38.41 General: Well developed, well nourished, in no acute distress Neck: Neck supple. No masses or palpable cervical nodes. Trachea midline. Thyroid without nodules, masses, tenderness, or enlargement Breast: No mass, nodule, discharge, or erythema bilaterally, and no axillary lymphadenopathy Lungs: Normal respiratory effort and clear to auscultation Cardio: Regular rate and rhythm, normal S1 and S2, no murmur, no rub Abdomen: Soft, non-distended, non-tender, normal bowel sounds x4 Gyno: normal external genitalia. Urethra no discharge. Vagina normal without lesions, no vaginal discharge. Cervix normal, without lesions. Uterus normal. No adnexal masses. Pap obtained Neurologic: Grossly normal Skin: No rashes, ulcerations, or suspicious lesions Lymph Nodes: No cervical adenopathy, nodes normal Mental Status: Alert and oriented x3. Normal mood and affect Assessment/Plan 1. Well woman exam (Z01.419: Encounter for gynecological examination (general) (routine) without abnormal findings) well woman exam. BSE discussed. pap obtained without difficulty. all questions answered. RTC as needed 2. Cervical cancer screening (Z12.4: Encounter for screening for malignant neoplasm of cervix) pap obtained without difficulty. specimen taken to [facility] due to insurance reasons 3. Skin cancer screening (Z12.83: Encounter for screening for malignant neoplasm of skin) skin cancer screen complete. no suspicious lesion were noted on exam 4. Non-smoker (Z78.9: Other specified health status) continue not smoking Ordered: escitalopram, 5 mg = 1 tab(s), Oral, Daily, # 30 tab(s), Refills(s) 0, [id number], 169, cm, 02/27/23 11:32:00 EDT, Height/Length Dosing, 109.7, kg, 02/27/23 11:32:00 EDT, Weight Dosing 5. BMI 38.0-38.9,adult (Z68.38: Body mass index [BMI] 38.0-38.9, adult) bmi education complete Ordered: escitalopram, 5 mg = 1 tab(s), Oral, Daily, # 30 tab(s), Refills(s) 0, [id number], 169, cm, 02/27/23 11:32:00 EDT, Height/Length Dosing, 109.7, kg, 02/27/23 11:32:00 EDT, Weight Dosing 6. Anxiety (F41.9: Anxiety disorder, unspecified) pt believes the Wellbutrin may have caused the rash she had. she stopped taking it . but feels she needs something for her anxiety it is worsening. will send escitalopram. RTC 3 months Orders: amphetamine-dextroamp hetamine, See Instructions, 1 tab(s) Oral at 2pm, # 90 tab(s), Refills(s) 0, [id number], 169, cm, 09/28/22 11:37:00 EDT, Height/Length Dosing, 104.4, kg, 09/28/22 11:37:00 EDT, Weight Dosing amphetamine-dextroamp hetamine, See Instructions, 1 tab(s) Oral at 2pm, # 90 tab(s), Refills(s) 0, [id number], 169, cm, 12/21/22 14:35:00 EDT, Height/Length Dosing, 103.7, kg, 12/21/22 14:35:00 EDT, Weight Dosing thyroid desiccated, 90 mg = 1 tab(s), Oral, Daily, if PA required please fax to [phone], # 41 tab(s), Refills(s) 0, Pharmacy: [facility]/pharmacy #[id number], 169, cm, 12/21/22 14:35:00 EDT (more content not included)... [facility] Comment on above: Result Comment: Elec tronically Signed By: Becca Cruz\.br\Date and Time Signed: 02/27/23 13:52 EDT Physician Orderon 02-27-2023 Physician Order [id number] .00TIFF [facility] Provider Letteron 02-15-2023 Provider Letter [address] [place] [id number] February 15, 2023 [place] [address] : 1985 To Whom It May Concern, Please the above patient had a well woman exam and skin cancer screening at my office on 05/16/2022. If you have any questions, please do not hesitate to call my office. Thank you. Sincerely, NELLY Braun [facility] Lab Reportson 01-03-2023 Lab Reports [id number] .00CD:127 [facility] Lab Reportson 01-01-2023 Lab Reports [id number] .00CD:127 [facility] Family Medicine Office/Clini c Noteon 12-24-2022 Family Medicine Office/Clinic Note HPI Staff Nixon is a 37 year old female presenting for rash Duration: started 12/16/22 New or Recurrent: pt states this happened once before when using bath and body wash and patient did use this wash on 12/15/22 Location: face/neck Description: red/dry Rash symptoms: itchy Pt has paperwork that she needs filled out for armor thyroid medication. Also patient states insurance isn't covering her Adderall and she is paying out of pocket and would like to know if that medication can get Prior Auth. History of Present Illness pt presents today for refills on meds and for rash that is not improving after medrol dose pack Review of Systems PHQ Score Initial Depression Screen Score: 0 ROS - Provider Constitutional: no fever, no chills, no sweats, no fatigue Respiratory: no shortness of breath, no cough, no orthopnea, no wheezing. Cardiovascular: no chest pain, no palpitations, no edema. Neurologic: no headache, no dizziness, no numbness, no weakness. rash on neck chest and abdomen red, raised itchy Physical Exam Vitals & Measurements HR: 98(Peripheral) RR: 18 BP: 140/88 SpO2: 99% HT: 67 in HT: 169 cm WT: 103.7 kg WT: 228.14 lb BMI: 36.31 General: alert, no acute distress ENMT: oral mucosa moist, no pharyngeal erythema or exudate Cardiovascular: regular rate and rhythm, normal peripheral perfusion Respiratory: Lungs CTA, respirations non labored Extremities: no deformity, no trauma Neurological: oriented x 4, LOC appropriate for age, CN II-XII intact, motor strength equal & normal bilaterally, speech normal skin: red, raised, itchy rash after using bath and body works Assessment/Plan 1. Hypothyroid (E03.9: Hypothyroidism, unspecified) pt present for refills for armour thyroid. pt states insurance has not been covering it. will fill out form she provided for PA. refills sent. all questions answered. RTC for wellness visit 2. ADHD, (F90.9: Attention-deficit hyperactivity disorder, unspecified type)Adult ADHD pt in need of refills on adderall. she trialed vyvanse but did not do well with it. she was not able to focus on daily tasks when taking vyvanse. may need PA for this medication as well. 3. BMI 36.0-36.9,adult (Z68.36: Body mass index [BMI] 36.0-36.9, adult) BMI education complete 4. Non-smoker (Z78.9: Other specified health status) continue not smoking Class 1 obesity due to excess calories in adult (E66.09: Other obesity due to excess calories) see above Follow-up No qualifying data available Problem List/Past Medical History Ongoing ADHD Adult ADHD Anemia Asymptomatic microscopic hematuria Chronic cholecystitis with calculus Hypothyroid Hypothyroidism Kidney stones Nausea and vomiting Nocturia Obesity, Class II, BMI 35-39.9 Pseudotumor cerebri Symptomatic cholelithiasis Thalassemia Ureteral stone with hydronephrosis Historical No qualifying data Procedure/Surgical History Laparoscopic cholecystectomy (04/22/2019), Acute tear of meniscus of left knee (08/12/2018), ACL - Anterior cruciate ligament rupture (11/15/2017), Caesarean section, Cholecystectomy. Medications acetaZOLAMIDE 250 mg Tab, 500 mg= 2 tab(s), Oral, BID Adderall XR 30 mg Cap-ER, 30 mg= 1 cap(s), Oral, qAM Aimovig SureClick Autoinjector-aooe 140 mg/mL subcutaneous solution, 140 mg amphetamine-dextroamp hetamine 20 mg Tab, See Instructions amphetamine-dextroamp hetamine 20 mg Tab, See Instructions Cat Spring Thyroid 90 mg Tab, 90 mg= 1 tab(s), Oral, Daily Cat Spring Thyroid 90 mg Tab, 90 mg= 1 tab(s), Oral, Daily Medrol 4 mg Tab, 1 packet(s), Oral, As Directed, 1 refills predniSONE 20 mg Tab, 20 mg= 1 tab(s), Oral, As Directed Wellbutrin XL 150 mg/24 hours Tab-ER, 150 mg= 1 tab(s), Oral, q24hr, 3 refills Allergies No Known Medication Allergies Social History Alcohol - Low Risk, 04/08/2019 Substance Abuse - Denies Substance Abuse, 04/08/2019 Tobacco Never (less than 100 in lifetime) Tobacco Use:. Never Smokeless Tobacco Use:. Household tobacco concerns: No., 12/21/2022 Family History Anemia: Mother. Hypertension: Mother. Immunizations Vaccine Date Status SARS-CoV-2 (COVID-19) mRNA-1273 vaccine 07/07/2021 Recorded diphtheria/pertussis, acel/tetanus adult 01/13/2021 Recorded SARS-CoV-2 (COVID-19) mRNA-1273 vaccine 01/13/2021 Recorded SARS-CoV-2 (COVID-19) mRNA-1273 vaccine 12/16/2020 Recorded influenza virus vaccine, inactivated 03/03/2020 Recorded influenza virus vaccine, inactivated 01/2020 Recorded influenza virus vaccine, inactivated 01/18/2017 Recorded [facility] Comment on above: Result Comment: Elec tronically Signed By: Becca Cruz.robi\Date and Time Signed: 12/24/22 09:24 EDT XR KUB 1 VIEWon 03-14-2021 XR KUB 1 VIEW EXAM: XR KUB 1 VIEW HISTORY: Kidney stone COMPARISON: KUB dated 12/26/2020. TECHNIQUE: One view of the abdomen was obtained. FINDINGS: There is a nonspecific bowel gas pattern without evidence of bowel obstruction. A supine view is suboptimal for evaluation of intraperitoneal free air though none is seen. No acute osseous abnormality is seen. A rectangular metallic density overlies the pelvis, possibly external to the patient. There are some linear calcifications overlying the right renal shadow measuring up to 0.6 cm. IMPRESSION: 1. There are some linear calcifications overlying the right renal shadow which could represent renal calculi. Electronically authenticated by: Peter MCCABE Date: 2021-03-14 04:56 Normal [facility] Pap IG, rfx Aptima HPV, rfx 16/18,45on 12-29-2020 . . Normal [facility] Comment on above: Result Comment: Perf ormed at: WB Performed By: #### P APHR2A #### [facility] [address] [address] Yoana Barrera DIAGNOSIS: Comment Normal [facility] Comment on above: Result Comment: NEGA TIVE FOR INTRAEPITHELIAL LESION OR MALIGNANCY. PREDOMINANCE OF COCCOBACILLI CONSISTENT WITH SHIFT IN VAGINAL CHRIS IS PRESENT. Performed at: WB Performed By: #### P APHR2A #### [facility] [address] [address] Yoana Barrera HPV Aptima Negative Normal Negative [facility] Comment on above: Result Comment: This nucleic acid amplification test detects fourteen high-risk HPV types (16,18,31,33,35,39,45,51,52,56,58,59,66,68) without differentiation. Performed at: =G Performed By: #### P APHR2A #### [facility] [address] [address] Yoana Barrera Methodology: Comment Normal [facility] Comment on above: Result Comment: This liquid based ThinPrep(R) pap test was screened with the use of an image guided system. Performed at: WB Performed By: #### P APHR2A #### [facility] [address] [place] [address] Yoana Barrera Note: Comment Normal [facility] Comment on above: Result Comment: The Pap smear is a screening test designed to aid in the detection of premalignant and malignant conditions of the uterine cervix. It is not a diagnostic procedure and should not be used as the sole means of detecting cervical cancer. Both false-positive and false-negative reports do occur. . Performed at: WB Performed By: #### P APHR2A #### [facility] [address] [place] [address] Yoana Barrera Performed by: Comment Normal [facility] Comment on above: Result Comment: Giovanna Rosado, Mitering Machine Operator (ASCP) Performed at: WB Performed By: #### P APHR2A #### [facility] [address] [place] [address] Yoana Barrera Specimen adequacy: Comment Normal [facility] Comment on above: Result Comment: Sati sfactory for evaluation. Endocervical and/or squamous metaplastic cells (endocervical component) are present. Performed at: WB Performed By: #### P APHR2A #### [facility] [address] [place] [address] Yoana Barrera US PELVIS AND TRANSVAGon US PELVIS AND TRANSVAG EXAMINATION: US PELVIS AND TRANSVAG HISTORY: Pelvic and perineal pain ; left lower quadrant pain for several weeks COMPARISON: No relevant comparison available. TECHNIQUE: Transabdominal and transvaginal sonographic examination. FINDINGS: UTERUS: Normal size and appearance. Uterus size: 9.9 x 4.8 x 3.8 cm ENDOMETRIUM: Normal homogeneous appearance. Endometrial thickness: 6 mm RIGHT OVARY: Normal size and appearance. Duplex Doppler demonstrates normal waveform and flow; resistive index 0.45. Ovary size: 3.4 x 2.3 x 2.0 cm LEFT OVARY: Normal size and appearance. Duplex Doppler demonstrates normal waveform and flow; resistive index 0.52. Ovary size: 2.3 x 1.7 x 1.5 cm CUL-DE-SAC: Unremarkable. No significant free fluid. BLADDER: Unremarkable. OTHER: None. IMPRESSION: 1. Normal pelvic ultrasound. Electronically authenticated by: RACHEL MEEK Date: 2020-12-28 15:31 Normal [facility] XR KUB 1 VIEWon 12-26-2020 XR KUB 1 VIEW EXAMINATION: XR KUB 1 VIEW HISTORY: Pelvic and perineal pain ; history of kidney stones COMPARISON: XR KUB 2020 FINDINGS: KIDNEY/URETER - RIGHT: No visible renal or ureteral calcifications. KIDNEY/URETER - LEFT: No visible renal or ureteral calcifications. PELVIS: No visible ureteral calcifications. Any visible calcifications favor phleboliths. BOWEL: No abnormal dilation or deviation. BONES: No acute abnormality. OTHER: Negative. No abnormal gaseous collections. IMPRESSION: 1. No appreciable urinary tract calculi. 2. Normal bowel gas pattern. No suspicious findings to account for patient's symptoms. Electronically authenticated by: RACHEL MEEK Date: 2020-12-26 16:18 Normal [facility] CBC AUTO DIFFon 09-16-2020 BASO # 0.1 103/ul Normal 0.0-0.1 [facility] Comment on above: Performed By: #### C BC #### [facility] [address] [place], [place] [address] Yoana Holly Basophils/100 WBC (Bld) 1.1 % Normal 0.2-2.0 [facility] Comment on above: Performed By: #### C BC #### [facility] [address] [place], [place] [address] Yoana Holly EO # 0.2 103/ul Normal 0.0-0.7 [facility] Comment on above: Performed By: #### C BC #### [facility] [address] [place], [place] [address] Yoana Holly Eosinophils/100 WBC (Bld) 2.4 % Normal 0.9-7.0 [facility] Comment on above: Performed By: #### C BC #### [facility] [address] [place], [place] [address] Yoana Ohlly Erythrocyte distribution width (RBC) [Ratio] 14.9 % Normal 11.0-15.0 [facility] Comment on above: Performed By: #### C BC #### [facility] [address] [place], [place] [id number] Yoana Holly Hematocrit (Bld) [Volume fraction] 41.4 % Normal 36.0-48.0 [facility] Comment on above: Performed By: #### C BC #### [facility] [address] [place] [address] Yoana Holly Hemoglobin (Bld) [Mass/Vol] 12.3 g/dL Normal 12.0-16.0 [facility] Comment on above: Performed By: #### C BC #### [facility] [address] [place] [address] Yoana Holly IG # 0.02 10e3/ul Normal 0.00-0.03 [facility] Comment on above: Performed By: #### C BC #### [facility] [address] [place] [address] Yoana Holly IG % 0.3 % Normal 0.0-0.5 [facility] Comment on above: Performed By: #### C BC #### [facility] [address] [place] [address] Yoana Holly LYMPH # 1.9 103/ul Normal 1.2-3.8 [facility] Comment on above: Performed By: #### C BC #### [facility] [address] [place] [address] Yoana Holly Lymphocytes/100 WBC (Bld) 27.3 % Normal 20.5-60.0 [facility] Comment on above: Performed By: #### C BC #### [facility] [address] [place] [address] Yoana Holly MANUAL DIFF REQ NO Normal [facility] Comment on above: Performed By: #### C BC #### [facility] [address] [place], [place] [id number] Yoana Holly MCH (RBC) [Entitic mass] 19.8 pg Critically low 26.7-34.0 [facility] Comment on above: Performed By: #### C BC #### [facility] [address] [place] [address] Yoana Holly MCHC (RBC) [Mass/Vol] 29.7 g/dL Critically low 29.9-35.2 [facility] Comment on above: Performed By: #### C BC #### [facility] [address] [id number] Yoana Barrera MCV (RBC) [Entitic vol] 66.8 fL Critically low 81.0-99.0 [facility] Comment on above: Performed By: #### C BC #### [facility] [address] [place] [address] Yoana Barrera MONO # 0.6 103/ul Normal 0.3-0.8 [facility] Comment on above: Performed By: #### C BC #### [facility] [address] [place] [address] Yoana Barrera Monocytes/100 WBC (Bld) 8.6 % Normal 1.7-12.0 [facility] Comment on above: Performed By: #### C BC #### [facility] [address] [place] [address] Yoana Landaen NEUT # 4.2 103/ul Normal 1.4-6.5 [facility] Comment on above: Performed By: #### C BC #### [facility] [address] [place], [place] [id number] Yoana Barrera Neutrophils/100 WBC (Bld) 60.3 % Normal 43.0-75.0 [facility] Comment on above: Performed By: #### C BC #### [facility] [address] [place], [place] [id number] Yoanatammy Barrera Platelet mean volume (Bld) [Entitic vol] 9.9 fL Normal 9.5-13.5 [facility] Comment on above: Performed By: #### C BC #### [facility] [address] [place], [place] [phone] Yoana Holly PLT 359 103/ul Normal 150-450 [facility] Comment on above: Performed By: #### C BC #### [facility] [address] [place], [place] [address] Yoana Holly RBC 6.20 106/ul Critically high 4.20-5.40 [facility] Comment on above: Performed By: #### C BC #### [facility] [address] [id number] Yoana Holly WBC 7.0 103/ul Normal 4.0-11.0 [facility] Comment on above: Performed By: #### C BC #### [facility] [address] [place], [place] [id number] Yoana Holly FREE T3on 09-16-2020 FREE T3 2.57 pg/mlL Critically low 2.77-5.27 [facility] Comment on above: Performed By: #### C MP, TSH, LIPID, FT3 #### [facility] [address] [place], [place] [id number] Yoanatammy Barrera FREE T4on 09-16-2020 Free T4 [Mass/Vol] 0.76 ng/dL Critically low 0.78-2.19 [facility] Comment on above: Performed By: #### C VDTB #### [facility] [address] [place], [place] [id number] Yoana Barrera GLYCOHEMOGLOBIN A1Con 2020 ADA RECOMMENDATION ADA THERAPEUTIC TARGET 6.0 - 7.0 ACTION SUGGESTED > 7.0 Normal [facility] Comment on above: Performed By: #### C VDTBH #### [facility] [address] [place], [place] [id number] Yoana Holly Glucose [Mass/Vol] 103 mg/dL Normal [facility] Comment on above: Performed By: #### C VDTBH #### [facility] [address] [place], [place] [id number] Yoana Barrera HbA1c (Bld) [Mass fraction] 5.2 % Normal <=6.0 [facility] Comment on above: Performed By: #### C VDTBH #### [facility] [address] [place], [place] [id number] Yoanatammy Barrera LIPID PROFILEon 09-16-2020 CHOL-HDL RATIO NORM SEE BELOW Normal [facility] Comment on above: Result Comment: 3.3 - 4.4 LOW RISK 4.4 - 7.1 AVERAGE RISK 7.1 - 11.0 MODERATE RISK >11.0 HIGH RISK Performed By: #### C MP, TSH, LIPID, FT3 #### [facility] [address] [id number] Yoana Holly Cholesterol [Mass/Vol] 154 mg/dL Normal <=200 [facility] Comment on above: Performed By: #### C MP, TSH, LIPID, FT3 #### [facility] [address] [id number] Yoana Holly Cholesterol in HDL [Mass/Vol] 60 mg/dL Normal [facility] Comment on above: Performed By: #### C MP, TSH, LIPID, FT3 #### [facility] [address] [id number] Yoana Holly Cholesterol in LDL [Mass/Vol] 82.4 mg/dL Normal [facility] Comment on above: Performed By: #### C MP, TSH, LIPID, FT3 #### [facility] [address] [id number] Yoana Holly Cholesterol.total/Cho lesterol in HDL [Mass ratio] 2.6 {ratio} Normal [facility] Comment on above: Performed By: #### C MP, TSH, LIPID, FT3 #### [facility] [address] [id number] Yoana Holly HDL NORMAL > or = 60 mg/dl - LO W CARDIOVASCULAR RISK <40 mg/dl - HIGH CARDIOVASCULAR RISK Normal The [facility] Comment on above: Performed By: #### C MP, TSH, LIPID, FT3 #### [facility] [address] [place], [place] [address] Yoana Holly LDL CALC NORMAL SEE BELOW Normal [facility] Comment on above: Result Comment: <100 mg/dl OPTIMAL 100 - 129 mg/dl NEAR OR ABOVE OPTIMAL 130 - 159 mg/dl BORDERLINE HIGH 160 - 189 mg/dl HIGH >190 mg/dl VERY HIGH Performed By: #### C MP, TSH, LIPID, FT3 #### [facility] [address] [id number] Yoana Holly Triglyceride [Mass/Vol] 58 mg/dL Normal <=150 The [facility] Comment on above: Performed By: #### C MP, TSH, LIPID, FT3 #### [facility] [address] [id number] Oyana Holly VLDL CALC 11.6 mg/dL Normal [facility] Comment on above: Performed By: #### C MP, TSH, LIPID, FT3 #### [facility] [address] [id number] Yoana Barrera PROF 14(COMP METB)on 021 Albumin [Mass/Vol] 4.3 g/dL Normal 3.5-5.0 [facility] Comment on above: Performed By: #### C MP, TSH, LIPID, FT3 #### [facility] [address] [address] Yoanatammy Landaen Albumin/Globulin [Mass ratio] 1.0 {ratio} Normal [facility] Comment on above: Performed By: #### C MP, TSH, LIPID, FT3 #### [facility] [address] [address] Yoana Holly ALP [Catalytic activity/Vol] 58 U/L Normal 38-126 [facility] Comment on above: Performed By: #### C MP, TSH, LIPID, FT3 #### [facility] [address] [place] [address] Yoanatammy Landaen ALT [Catalytic activity/Vol] 34 U/L Normal 9-52 [facility] Comment on above: Performed By: #### C MP, TSH, LIPID, FT3 #### [facility] [address] [address] Yoana Holly Anion gap [Moles/Vol] 13.4 mmol/L Normal [facility] Comment on above: Performed By: #### C MP, TSH, LIPID, FT3 #### [facility] [address] [address] Yoana Holly AST [Catalytic activity/Vol] 13 U/L Critically low 14-36 [facility] Comment on above: Performed By: #### C MP, TSH, LIPID, FT3 #### [facility] [address] [address] Yoana Holly Bilirubin [Mass/Vol] 0.6 mg/dL Normal 0.2-1.3 The [facility] Comment on above: Performed By: #### C MP, TSH, LIPID, FT3 #### [facility] [address] [address] Yoana Holly Calcium [Mass/Vol] 9.7 mg/dL Normal 8.4-10.2 [facility] Comment on above: Performed By: #### C MP, TSH, LIPID, FT3 #### [facility] [address] [address] Yoana Holly Chloride [Moles/Vol] 104 mmol/L Normal 98-107 The [facility] Comment on above: Performed By: #### C MP, TSH, LIPID, FT3 #### [facility] [address] [place] [address] Yoana Holly CO2 [Moles/Vol] 26.1 mmol/L Normal 22.0-30.0 [facility] Comment on above: Performed By: #### C MP, TSH, LIPID, FT3 #### [facility] [address] [place] [address] Yoana Holly Creatinine [Mass/Vol] 0.77 mg/dL Normal 0.52-1.04 [facility] Comment on above: Performed By: #### C MP, TSH, LIPID, FT3 #### [facility] [address] [place] [address] Yoana Holly EGFR-AF RUSSIAN >60 Normal >=60 [facility] Comment on above: Performed By: #### C MP, TSH, LIPID, FT3 #### [facility] [address] [place] [address] Yoana Holly EGFR-NON AF RUSSIAN >60 Normal >=60 The [facility] Comment on above: Performed By: #### C MP, TSH, LIPID, FT3 #### [facility] [address] [place] [address] Yoana Holly Globulin (S) [Mass/Vol] 4.1 g/dL Normal The [facility] Comment on above: Performed By: #### C MP, TSH, LIPID, FT3 #### [facility] [address] [place] [address] Yoana Holly Glucose [Mass/Vol] 90 mg/dL Normal 74-106 [facility] Comment on above: Performed By: #### C MP, TSH, LIPID, FT3 #### [facility] [address] [place] [address] Yoana Holly Potassium [Moles/Vol] 3.5 mmol/L Normal 3.4-5.0 [facility] Comment on above: Performed By: #### C MP, TSH, LIPID, FT3 #### [facility] [address] [place] [address] Yoana Holly Protein [Mass/Vol] 8.4 g/dL Critically high 6.1-8.2 [facility] Comment on above: Performed By: #### C MP, TSH, LIPID, FT3 #### [facility] [address] [place] [address] Yoana Holly Sodium [Moles/Vol] 140 mmol/L Normal 137-145 [facility] Comment on above: Performed By: #### C MP, TSH, LIPID, FT3 #### [facility] [address] [place] [address] Yoana Holly Urea nitrogen [Mass/Vol] 16.0 mg/dL Normal 7.0-17.0 [facility] Comment on above: Performed By: #### C MP, TSH, LIPID, FT3 #### [facility] [address] [place] [address] Yoana Holly Urea nitrogen/Creatinine [Mass ratio] 20.8 mg/mg Normal [facility] Comment on above: Performed By: #### C MP, TSH, LIPID, FT3 #### [facility] [address] [place], [place] [address] Yoana Holly TSHon 09-16-2020 TSH 1.139 uIU/mL Normal 0.470-4.680 [facility] Comment on above: Performed By: #### C MP, TSH, LIPID, FT3 #### [facility] [address] [place], [place] [address] Yoana Barrera TSH RANGE SEE BELOW Normal [facility] Comment on above: Result Comment: <0.3 4 UIU/ml HYPERTHYROID 0.34-5.60 UIU/ml EUTHYROID >5.60 UIU/ml HYPOTHYROID Performed By: #### C MP, TSH, LIPID, FT3 #### [facility] [address] [place], [place] [address] Yoana Barrera XR KUB 1 VIEWon 2020 XR KUB 1 VIEW EXAMINATION: XR KUB 1 VIEW HISTORY: Kidney stone COMPARISON: 09/09/2020 FINDINGS: KIDNEY/URETER - RIGHT: No visible renal or ureteral calcifications. KIDNEY/URETER - LEFT: No visible renal or ureteral calcifications. PELVIS: No visible ureteral calcifications. Any visible calcifications favor phleboliths. BOWEL: No abnormal dilation or deviation. BONES: No acute abnormality. OTHER: Negative. No abnormal gaseous collections. IMPRESSION: Previously identified left pelvic calcifications are no longer seen Electronically authenticated by: TAISHA ANAND Date: 2020 14:09 Normal [facility] XR KUB 1 VIEWon 09-09-2020 XR KUB 1 VIEW EXAMINATION: XR KUB 1 VIEW HISTORY: Kidney stone COMPARISON: XR KUB 08/10/2020 FINDINGS: KIDNEY/URETER - RIGHT: A few punctate densities overlie the kidney, stones versus bowel content artifact. KIDNEY/URETER - LEFT: Left ureteral stent has been removed. A few punctate opacities overlie the kidney, suspected represent stones. PELVIS: Within the lower left pelvis 2 calcifications suspected represent stones within the distal ureter, 7 x 4 and 4 x 3 mm respectively. BOWEL: No abnormal dilation or deviation. BONES: No acute abnormality. OTHER: Negative. No abnormal gaseous collections. IMPRESSION: 1. New distal left ureteral stones. 2. Interval removal of left ureteral stent. Electronically authenticated by: RACHEL MEEK Date: 2020-09-09 08:19 Normal [facility] CALCULI, URINARYon 1 2,8 Dihydroxyadenine Normal [facility] Comment on above: Performed By: #### C ALCULI #### [facility] [address] [id number] Yoana Barrera Ammonium Acid Urate Normal [facility] Comment on above: Performed By: #### C ALCULI #### [facility] [address] [address] Yoana Holly Bilirubin Ql (U) Normal [facility] Comment on above: Performed By: #### C ALCULI #### [facility] [address] [address] Yoana Holly Ca Oxalate Dihydrate Normal The [facility] Comment on above: Performed By: #### C ALCULI #### [facility] [address] [address] Yoana Holly CaHPO4 (Brushite) 10 % Normal [facility] Comment on above: Performed By: #### C ALCULI #### [facility] [address] [address] Yoana Holly Calcium Bilirubinate Normal The [facility] Comment on above: Performed By: #### C ALCULI #### [facility] [address] [address] Yoana Holly Calcium Carbonate Normal [facility] Comment on above: Performed By: #### C ALCULI #### [facility] [address] [address] Yoana Holly Calcium Oxalate Monohydrate Normal The [facility] Comment on above: Performed By: #### C ALCULI #### [facility] [address] [place] [address] Yoana Holly Calcium Palmitate Normal [facility] Comment on above: Performed By: #### C ALCULI #### [facility] [address] [address] Yoana Holly Calcium Phosphate Normal [facility] Comment on above: Performed By: #### C ALCULI #### [facility] [address] [address] Yoana Holly Calcium Stearate Normal [facility] Comment on above: Performed By: #### C ALCULI #### [facility] [address] [address] Yoana Holly Carbonate Apatite Normal [facility] Comment on above: Performed By: #### C ALCULI #### [facility] [address] [address] Yoana Holly Cellular Material Normal [facility] Comment on above: Performed By: #### C ALCULI #### [facility] [address] [address] Yoana Holly Cholesterol Normal [facility] Comment on above: Performed By: #### C ALCULI #### [facility] [address] [address] Yoana Holly Color (U) [place] Normal [facility] Comment on above: Performed By: #### C ALCULI #### [facility] [address] [address] Yoana Holly Comment Comment Normal [facility] Comment on above: Result Comment: The possibility of struvite as a minor component of the calculi cannot be excluded. There is insufficient material for further analysis. Performed By: #### C ALCULI #### [facility] [address] [place] [address] Yoana Holly Comment Normal [facility] Comment on above: Performed By: #### C ALCULI #### [facility] [address] [place] [address] Yoana Holly Comment: Comment Normal [facility] Comment on above: Result Comment: Marce borges questions regarding Calculi Analysis contact [facility] at: [phone]. Performed By: #### C ALCULI #### [facility] [address] [place] [address] Yoana Holly Composition Comment [facility] Comment on above: Result Comment: Perc entage (Represents the % composition) Performed By: #### C ALCULI #### [facility] [address] [place] [address] Yoana Holly Cystine [facility] Comment on above: Performed By: #### C ALCULI #### [facility] [address] [place] [address] Yoana Holly Disclaimer: Comment Normal [facility] Comment on above: Result Comment: This test was developed and its performance characteristics determined by [facility]. It has not been cleared or approved by the Food and Drug Administration. Performed By: #### C ALCULI #### [facility] [address] [address] Yoana Holly Dried Blood Normal [facility] Comment on above: Performed By: #### C ALCULI #### [facility] [address] [address] Yoana Holly Drug or Metabolite Normal [facility] Comment on above: Performed By: #### C ALCULI #### [facility] [address] [address] Yoana Holly Hydroxyapatite 90 % Normal [facility] Comment on above: Performed By: #### C ALCULI #### [facility] [address] [address] Yoana Holly Mg NH4 PO4 (Struvite) Normal [facility] Comment on above: Performed By: #### C ALCULI #### [facility] [address] [place] [address] Yoana Holly MgHPO4 (Newberyite) Normal [facility] Comment on above: Performed By: #### C ALCCHACHA #### [facility] [address] [address] Yoana Holly Other component(s) Normal [facility] Comment on above: Performed By: #### C ALCCHACHA #### [facility] [address] [address] Yoana Holly PDF . Normal [facility] Comment on above: Performed By: #### C ALCULI #### [facility] [address] [address] Yoana Holly Photo Comment Normal [facility] Comment on above: Result Comment: Phot ograph will follow under a separate cover Performed By: #### C ALCCHACHA #### [facility] [address] [address] Yoana Holly Please note: Comment Normal [facility] Comment on above: Result Comment: Calc chacha report will follow via computer, mail or photonics engineering technologist delivery. Performed By: #### C ALCULI #### [facility] [address] [address] Yoana Holly Size 2x2 Normal [facility] Comment on above: Result Comment: Mult iple pieces received. Dimensions of the largest piece reported. Performed By: #### C ALCULI #### [facility] [address] [place], [place] [address] Yoana Holly Sodium Acid Urate Normal [facility] Comment on above: Performed By: #### C ALCULI #### [facility] [address] [place], [place] [address] Yoana Holly Source Comment Normal [facility] Comment on above: Result Comment: Not provided Performed By: #### C ALCULI #### [facility] [address] [id number] Yoana Holly Triamterene Normal [facility] Comment on above: Performed By: #### C ALCULI #### [facility] [address] [address] Yoana Holly Uric Acid Normal [facility] Comment on above: Performed By: #### C ALCULI #### [facility] [address] [address] Yoana Holly Uric Acid Dihydrate Normal [facility] Comment on above: Performed By: #### C ALCULI #### [facility] [address] [id number] Yoana Holly Weight 5 mg Normal The [facility] Comment on above: Performed By: #### C ALCULI #### [facility] [address] [id number] Yoana Holly Xanthine Normal [facility] Comment on above: Performed By: #### C ALCULI #### [facility] [address] [id number] Yoana Holly PREG HCG QUALon 08-10-2020 , QUAL Negative Normal NEGATIVE [facility] Comment on above: Performed By: #### C VDTBH #### [facility] [address] [id number] Yonaa Holly XR KUB 1 VIEWon 08-10-2020 XR KUB 1 VIEW EXAMINATION: XR KUB 1 VIEW HISTORY: Urolithiasis COMPARISON: No relevant comparison available. FINDINGS: KIDNEY/URETER - RIGHT: No visible renal or ureteral calcifications. KIDNEY/URETER - LEFT: Left double-J ureteral stent in normal position. Suspected calcification projects over the stent and the left L3 transverse process PELVIS: No visible ureteral calcifications. Any visible calcifications favor phleboliths. BOWEL: No abnormal dilation or deviation. BONES: No acute abnormality. OTHER: Negative. No abnormal gaseous collections. IMPRESSION: Ureteral stent with suspected proximal left ureterolith Electronically authenticated by: TAISHA ANAND Date: 2020-08-10 09:00 Normal The [facility] CULTURE URINEon 08-08-2020 CULTURE URINE Isolate 1 Enterococcus faecalis 10,000 cfu/ml of Isolate 2 Escherichia coli 10,000 cfu/ml of ORGANISM 2 Escherichia coli ANTIBIOTIC M.I.C RX STATUS Ampicillin 8 S F Ampicillin/Sulbactam <=2 S F Piperacillin/Tazobact am <=4 S F Cefazolin <=4 S F Ceftazidime <=1 S F Ceftriaxone <=1 S F Ertapenem <=0.5 S F Imipenem <=0.25 S F Amikacin <=2 S F Gentamicin <=1 S F Tobramycin <=1 S F Ciprofloxacin <=0.25 S F Levofloxacin <=0.12 S F Nitrofurantoin <=16 S F Trimethoprim/Sulfamet hoxazole <=20 S F ORGANISM 1 Enterococcus faecalis ANTIBIOTIC M.I.C RX STATUS Beta-Lactamase Neg NEG F Benzylpenicillin 1 S F Ampicillin <=2 S F Gentamicin High Level (synergy) SYN-S S F Streptomycin High Level (synergy) SYN-S S F Ciprofloxacin <=0.5 S F Levofloxacin 0.5 S F Quinupristin/Dalfopri stin 4 R F Linezolid 2 S F Vancomycin 1 S F Tetracycline <=1 S F Nitrofurantoin <=16 S F Normal The [facility] Comment on above: Performed By: #### C VDTBH #### [facility] [address] [place] [address] Yoana Barrera UA RANDOM W/MICROSCOPICon BACTERIA SMALL Abnormal NONE SEEN The [facility] Comment on above: Performed By: #### U AMIC #### [facility] [address] [place], [place] [id number] Yoana Holly Bilirubin Ql (U) Negative Normal NEGATIVE [facility] Comment on above: Performed By: #### U AMIC #### [facility] [address] [address] Yoana Holly CAST NONE SEEN Normal NONE SEEN The [facility] Comment on above: Performed By: #### U AMIC #### [facility] [address] [address] Yoana Holly Clarity (U) CLEAR Normal CLEAR The [facility] Comment on above: Performed By: #### U AMIC #### [facility] [address] [address] Yoana Holly Color (U) LT. YELLOW Normal YELLOW The [facility] Comment on above: Performed By: #### U AMIC #### [facility] [address] [place] [address] Yoana Holly Crystals LM Nom (Urine sed) NONE SEEN Normal NONE SEEN The [facility] Comment on above: Performed By: #### U AMIC #### [facility] [address] [address] Yoana Holly Epithelial cells LM Ql (Urine sed) FEW Abnormal NONE SEEN /RARE The [facility] Comment on above: Performed By: #### U AMIC #### [facility] [address] [address] Yoana Holly Glucose Ql (U) Negative Normal NEGATIVE [facility] Comment on above: Performed By: #### U AMIC #### [facility] [address] [address] Yoana Holly Hemoglobin Ql (U) LARGE Abnormal NEGATIVE [facility] Comment on above: Performed By: #### U AMIC #### [facility] [address] [address] Yoana Holly Ketones Ql (U) TRACE Abnormal NEGATIVE [facility] Comment on above: Performed By: #### U AMIC #### [facility] [address] [place] [address] Yoana Holly LEUKOCYTES TRACE Abnormal NEGATIVE The [facility] Comment on above: Performed By: #### U AMIC #### [facility] [address] [id number] Yoana Holly MUCOUS SMALL Abnormal NONE SEEN The The [facility] Comment on above: Performed By: #### U AMIC #### [facility] [address] [place], [place] [id number] Yoana Holly Nitrite Ql (U) Negative Normal NEGATIVE [facility] Comment on above: Performed By: #### U AMIC #### [facility] [address] [place], [place] [id number] Yoana Holly pH (U) 8.0 [pH] Normal 5-9 The [facility] Comment on above: Performed By: #### U AMIC #### [facility] [address] [place], [place] [address] Yoana Holly RBC 10-20 Abnormal 0-2 [facility] Comment on above: Performed By: #### U AMIC #### [facility] [address] [place] [address] Yoana Holly SPEC GRAVITY 1.015 Normal 1.005-<=1.025 [facility] Comment on above: Performed By: #### U AMIC #### [facility] [address] [place], [place] [address] Yoana Holly UA PROTEIN 100 mg/dl Abnormal NEGATIVE/ TRACE The [facility] Comment on above: Performed By: #### U AMIC #### [facility] [address] [place], [place] [address] Yoana Barrera Urobilinogen Qn (U) 1.0 {Koffi'U}/dL Normal 0.2 - 1. 0 The [facility] Comment on above: Performed By: #### U AMIC #### [facility] [address] [place], [place] [address] Yoana Holly WBC 5-10 Abnormal NONE SEEN The [facility] Comment on above: Performed By: #### U AMIC #### [facility] [address] [place], [place] [address] Yoana Barrera [facility] SARS-CoV-2 (COVID-19) RNA CARLITA+probe Ql (Unsp spec) Not detected Normal NOT DETECTED The [facility] Comment on above: Result Comment: This test is not yet approved or cleared by the [place] FDA. When there are no FDA-approved or cleared tests available, and other criteria are met, FDA can make tests available under an emergency access mechanism called an Emergency Use Authorization (EUA). The EUA for this test is supported by the Marriage Counselor Minister of Health and Human Service's (HHS's) declaration that circumstances exist to justify the emergency use of in vitro diagnostics for the detection and/or diagnosis of the virus that causes COVID-19. This EUA will remain in effect (meaning this test can be used) for the duration of the COVID-19 declaration justifying emergency of IVDs, unless it is terminated or revoked by FDA (after which the test may no longer be used). When diagnostic testing is negative, the possibility of a false negative should be considered in the context of a patient's recent exposures and the presence of clinical signs and symptoms consistent with SARS-CoV-2. Performed By: #### C VDTB #### [facility] [address] [place] [address] Yoana Holly CBC AUTO DIFFon 07-14-2020 BASO # 0.1 103/ul Normal 0.0-0.1 The [facility] Comment on above: Performed By: #### C BC #### [facility] [address] [place] [address] Yoana Holly Basophils/100 WBC (Bld) 1.2 % Normal 0.2-2.0 The [facility] Comment on above: Performed By: #### C BC #### [facility] [address] [place] [address] Yoana Holly EO # 0.1 103/ul Normal 0.0-0.7 The [facility] Comment on above: Performed By: #### C BC #### [facility] [address] [place], [place] [address] Yoana Holly Eosinophils/100 WBC (Bld) 1.5 % Normal 0.9-7.0 The [facility] Comment on above: Performed By: #### C BC #### [facility] [address] [place], [place] [address] Yoana Holly Erythrocyte distribution width (RBC) [Ratio] 14.8 % Normal 11.0-15.0 [facility] Comment on above: Performed By: #### C BC #### [facility] [address] [place] [address] Yoana Barrera Hematocrit (Bld) [Volume fraction] 39.8 % Normal 36.0-48.0 [facility] Comment on above: Performed By: #### C BC #### [facility] [address] [place] [address] Yoana Barrera Hemoglobin (Bld) [Mass/Vol] 11.8 g/dL Critically low 12.0-16.0 [facility] Comment on above: Performed By: #### C BC #### [facility] [address] [place] [address] Yoana Barrera IG # 0.02 10e3/ul Normal 0.00-0.03 [facility] Comment on above: Performed By: #### C BC #### [facility] [address] [place] [address] Yoana Barrera IG % 0.3 % Normal 0.0-0.5 [facility] Comment on above: Performed By: #### C BC #### [facility] [address] [place] [address] Yoana Barrera LYMPH # 1.4 103/ul Normal 1.2-3.8 [facility] Comment on above: Performed By: #### C BC #### [facility] [address] [place] [address] Yoana Barrera Lymphocytes/100 WBC (Bld) 24.1 % Normal 20.5-60.0 The [facility] Comment on above: Performed By: #### C BC #### [facility] [address] [place], [place] [address] Yoana Barrera MANUAL DIFF REQ NO Normal [facility] Comment on above: Performed By: #### C BC #### [facility] [address] [place] [address] Yoana Barrera MCH (RBC) [Entitic mass] 19.8 pg Critically low 26.7-34.0 The [facility] Comment on above: Performed By: #### C BC #### [facility] [address] [id number] Yoana Barrera MCHC (RBC) [Mass/Vol] 29.6 g/dL Critically low 29.9-35.2 [facility] Comment on above: Performed By: #### C BC #### [facility] [address] [id number] Yoana Barrera MCV (RBC) [Entitic vol] 66.9 fL Critically low 81.0-99.0 [facility] Comment on above: Performed By: #### C BC #### [facility] [address] [address] Yoana Barrera MONO # 0.4 103/ul Normal 0.3-0.8 [facility] Comment on above: Performed By: #### C BC #### [facility] [address] [place] [address] Yoana Barrera Monocytes/100 WBC (Bld) 7.4 % Normal 1.7-12.0 [facility] Comment on above: Performed By: #### C BC #### [facility] [address] [place] [address] Yoana Barrera NEUT # 3.8 103/ul Normal 1.4-6.5 [facility] Comment on above: Performed By: #### C BC #### [facility] [address] [place], [place] [address] Yoana Barrera Neutrophils/100 WBC (Bld) 65.5 % Normal 43.0-75.0 The [facility] Comment on above: Performed By: #### C BC #### [facility] [address] [phone] Yoanatammy Barrera Platelet mean volume (Bld) [Entitic vol] 10.5 fL Normal 9.5-13.5 The [facility] Comment on above: Performed By: #### C BC #### [facility] [address] [id number] Yoana Holly PLT 371 103/ul Normal 150-450 The [facility] Comment on above: Performed By: #### C BC #### [facility] [address] [place], [place] [address] Yoana Barrera RBC 5.95 106/ul Critically high 4.20-5.40 [facility] [place] [facility] Comment on above: Performed By: #### C BC #### [facility] [address] [place], [place] [address] Yoana Barrera WBC 5.8 103/ul Normal 4.0-11.0 The [facility] Comment on above: Performed By: #### C BC #### [facility] [address] [place], [place] [address] ABD/PELVIS WO CONon 07-14 CT ABD/PELVIS WO CON EXAMINATION: CT ABD/PELVIS WO CON HISTORY: Left flank pain for the last hour. COMPARISON: None. TECHNIQUE: CT examination of the abdomen and pelvis without IV contrast. Coronal and sagittal reformations were performed. Dose reduction techniques were achieved by using automated exposure control and/or adjustment of mA and/or kV according to patient size and/or use of iterative reconstruction technique. FINDINGS: The lung bases are clear. Lower mediastinal structures are normal. The liver, spleen, adrenal glands, and pancreas are normal. Surgical changes of cholecystectomy. The kidneys are symmetric in size. Both kidneys show multiple parenchymal calcifications ranging in size up to 3 mm. There is moderate hydronephrosis on the left side. Is caused by a 6.2 mm stone at the UPJ. No distal ureteral stones are seen. The aorta has a normal course and caliber. The large and small bowel are normal caliber. Pelvic organs and urinary bladder are normal. There is no free air or free fluid and no inflammatory stranding is seen. No suspicious or destructive bone lesions are seen. IMPRESSION: Partially obstructing 6.2 mm stone at the left UPJ with bilateral nephrolithiasis. The rest of the study is grossly unremarkable within the limitations of a noncontrast exam. Electronically authenticated by: ALALN EATON Date: 2020-07-14 09:49 Normal The [facility] ER URINE PROFILEon Bilirubin Ql (U) Negative Normal NEGATIVE The [facility] Comment on above: Performed By: #### C VDTB #### [facility] [address] [place] [address] Holly Clarity (U) CLEAR Normal CLEAR The [facility] Comment on above: Performed By: #### C VDTB #### [facility] [address] [place] [address] Yoana Holly Color (U) LT. YELLOW Normal YELLOW The [facility] Comment on above: Performed By: #### C VDTB #### [facility] [address] [place] [address] Yoana Holly ERUAHD A micrscopic examination will be performed if indicated. Normal The [facility] Comment on above: Performed By: #### C VDTB #### [facility] [address] [place] [address] Yoana Holly Glucose Ql (U) Negative Normal NEGATIVE [facility] Comment on above: Performed By: #### C VDTB #### [facility] [address] [place] [address] Yoana Holly Hemoglobin Ql (U) MODERATE Abnormal NEGATIVE [facility] Comment on above: Performed By: #### C VDTB #### [facility] [address] [place] [address] Yoana Holly Ketones Ql (U) Negative Normal NEGATIVE [facility] Comment on above: Performed By: #### C VDTB #### [facility] [address] [place] [address] Yoana Holly LEUKOCYTES Negative Normal NEGATIVE The [facility] Comment on above: Performed By: #### C VDTB #### [facility] [address] [place] [address] Yoana Holly Nitrite Ql (U) Negative Normal NEGATIVE [facility] Comment on above: Performed By: #### C VDTB #### [facility] [address] [place] [address] Yoana Holly pH (U) 8.5 [pH] Normal 5-9 The [facility] Comment on above: Performed By: #### C VDTBH #### [facility] [address] [place] [address] Yoana Holly SPEC GRAVITY 1.015 Normal 1.005-<=1.025 [facility] Comment on above: Performed By: #### C VDTB #### [facility] [address] [place], [place] [address] Yoana Holly UA PROTEIN TRACE Normal NEGATIVE/ TRACE [facility] Comment on above: Performed By: #### C VDTBH #### [facility] [address] [place], [place] [address] Yoanatammy Barrera UR MICRO IND INDICATED Normal [facility] Comment on above: Performed By: #### C VDTBH #### [facility] [address] [place], [place] [address] Yoanatammy Barrera Urobilinogen Qn (U) 0.2 {Koffi'U}/dL Normal 0.2 - 1. 0 [facility] Comment on above: Performed By: #### C VDTBH #### [facility] [address] [place], [place] [address] Yoanatammy Barrera PREG HCG QUALon 07-14-2020 , QUAL Negative Normal NEGATIVE [facility] Comment on above: Performed By: #### C VDTBH #### [facility] [address] [place], [place] [address] Yoana Barrera PROF 14(COMP METB)on 021 Albumin [Mass/Vol] 4.2 g/dL Normal 3.5-5.0 [facility] Comment on above: Performed By: #### C MP #### [facility] [address] [place], [place] [address] Yoana Barrera Albumin/Globulin [Mass ratio] 1.2 {ratio} Normal [facility] Comment on above: Performed By: #### C MP #### [facility] [address] [place], [place] [address] Yoana Holly ALP [Catalytic activity/Vol] 61 U/L Normal 38-126 The [facility] Comment on above: Performed By: #### C MP #### [facility] [address] [place], [place] [address] Yoana Holly ALT [Catalytic activity/Vol] 26 U/L Normal 9-52 The [facility] Comment on above: Performed By: #### C MP #### [facility] [address] [id number] Yoana Holly Anion gap [Moles/Vol] 16.8 mmol/L Normal Th [facility] Comment on above: Performed By: #### C MP #### [facility] [address] [address] Yoana Holly AST [Catalytic activity/Vol] 12 U/L Critically low 14-36 The [facility] Comment on above: Performed By: #### C MP #### [facility] [address] [id number] Yoana Holly Bilirubin [Mass/Vol] 0.8 mg/dL Normal 0.2-1.3 The [facility] Comment on above: Performed By: #### C MP #### [facility] [address] [address] Yoana Holly Calcium [Mass/Vol] 9.5 mg/dL Normal 8.4-10.2 [facility] Comment on above: Performed By: #### C MP #### [facility] [address] [address] Yoana Holly Chloride [Moles/Vol] 105 mmol/L Normal 98-107 The [facility] Comment on above: Performed By: #### C MP #### [facility] [address] [address] Yoana Holly CO2 [Moles/Vol] 25.7 mmol/L Normal 22.0-30.0 [facility] [place] [facility] Comment on above: Performed By: #### C MP #### [facility] [address] [address] Yoana Holly Creatinine [Mass/Vol] 0.80 mg/dL Normal 0.52-1.04 [facility] Comment on above: Performed By: #### C MP #### [facility] [address] [id number] Yoana Holly EGFR-AF RUSSIAN >60 Normal >=60 [facility] [place] [facility] Comment on above: Performed By: #### C MP #### [facility] [address] [id number] Yoana Holly EGFR-NON AF RUSSIAN >60 Normal >=60 [facility] Comment on above: Performed By: #### C MP #### [facility] [address] [id number] Yoana Holly Globulin (S) [Mass/Vol] 3.4 g/dL Normal [facility] Comment on above: Performed By: #### C MP #### [facility] [address] [address] Yoana Holly Glucose [Mass/Vol] 107 mg/dL Critically high 74-106 T [facility] [place] Comment on above: Performed By: #### C MP #### [facility] [address] [id number] Yoana Holly Potassium [Moles/Vol] 3.5 mmol/L Normal 3.4-5.0 [facility] Comment on above: Performed By: #### C MP #### [facility] [address] [place] [address] Yoana Holly Protein [Mass/Vol] 7.6 g/dL Normal 6.1-8.2 [facility] Comment on above: Performed By: #### C MP #### [facility] [address] [place] [address] Yoana Holly Sodium [Moles/Vol] 144 mmol/L Normal 137-145 [facility] Comment on above: Performed By: #### C MP #### [facility] [address] [place] [address] Yoana Holly Urea nitrogen [Mass/Vol] 16.0 mg/dL Normal 7.0-17.0 [facility] Comment on above: Performed By: #### C MP #### [facility] [address] [place], [place] [address] Yoana Holly Urea nitrogen/Creatinine [Mass ratio] 20.0 mg/mg Normal [facility] Comment on above: Performed By: #### C MP #### [facility] [address] [place], [place] [address] Yoana Holly RESPIRATORY PANEL PLUSon Adenovirus Not detected Normal NOT DETECTED [facility] Comment on above: Performed By: #### C BC #### [facility] [address] [place] [address] Yoana Holly B. Parapertusis Not detected Normal NOT DETECTED The [facility] Comment on above: Performed By: #### C BC #### [facility] [address] [address] Yoana Holly B. Pertussis Not detected Normal NOT DETECTED [facility] [place] [facility] Comment on above: Performed By: #### C BC #### [facility] [address] [place] [address] Yoana Holly Chlamydia Pneumoniae Not detected Normal NOT DETECTED The [facility] Comment on above: Performed By: #### C BC #### [facility] [address] [place] [address] Yoana Holly Coronavirus 229E Not detected Normal NOT DETECTED The [facility] Comment on above: Performed By: #### C BC #### [facility] [address] [place] [address] Yoana Holly Coronavirus HKU1 Not detected Normal NOT DETECTED The [facility] Comment on above: Performed By: #### C BC #### [facility] [address] [place] [address] Yoana Holly Coronavirus NL63 Not detected Normal NOT DETECTED The [facility] Comment on above: Performed By: #### C BC #### [facility] [address] [place] [address] Yoana Holly Coronavirus OC43 Not detected Normal NOT DETECTED The [facility] Comment on above: Performed By: #### C BC #### [facility] [address] [place] [address] Yoana Holly Influenza A H1 2009 Not detected Normal NOT DETECTED [facility] Comment on above: Performed By: #### C BC #### [facility] [address] [place] [address] Yoana Holly Influenza B Not detected Normal NOT DETECTED [facility] Comment on above: Performed By: #### C BC #### [facility] [address] [place] [address] Yoana Holly Metapneumovirus Not detected Normal NOT DETECTED The [facility] Comment on above: Performed By: #### C BC #### [facility] [address] [address] Yoana Holly Mycoplas. Pneumoniae Not detected Normal NOT DETECTED The [facility] Comment on above: Performed By: #### C BC #### [facility] [address] [address] Yoana Holly Parainfluenza 1 Not detected Normal NOT DETECTED The [facility] Comment on above: Performed By: #### C BC #### [facility] [address] [address] Yoana Holly Parainfluenza 2 Not detected Normal NOT DETECTED The [facility] Comment on above: Performed By: #### C BC #### [facility] [address] [address] Yoana Holly Parainfluenza 3 Not detected Normal NOT DETECTED The [facility] Comment on above: Performed By: #### C BC #### [facility] [address] [place] [address] Yoana Holly Parainfluenza 4 Not detected Normal NOT DETECTED The [facility] Comment on above: Performed By: #### C BC #### [facility] [address] [place] [address] Yoana Holly Rhino/Enterovirus Not detected Normal NOT DETECTED The [facility] Comment on above: Performed By: #### C BC #### [facility] [address] [place] [address] Yoana Holly RP2 Header 1 RESPIRATORY PANEL: VIRUSES Normal The [facility] Comment on above: Performed By: #### C BC #### [facility] [address] [place] [address] Yoana Holly RP2 Header 2 RESPIRATORY PANEL: BACTERIA Normal The [facility] Comment on above: Performed By: #### C BC #### [facility] [address] [place] [address] Yoana Holly RP2 Header 4 EUA SEE BELOW Normal The [facility] Comment on above: Result Comment: This test is not yet approved or cleared by the [place] FDA. When there are no FDA-approved or cleared tests available, and other criteria are met, FDA can make tests available under an emergency access mechanism called an Emergency Use Authorization (EUA). The EUA for this test is supported by the Marriage Counselor Minister of Health and Human Service?s (HHS?s) declaration that circumstances exist to justify the emergency use of in vitro diagnostics for the detection and/or diagnosis of the virus that causes COVID-19. This EUA will remain in effect (meaning this test can be used) for the duration of the COVID-19 declaration justifying emergency of IVDs, unless it is terminated or revoked by FDA (after which the test may no longer be used). Performed By: #### C BC #### [facility] [address] [place] [address] Yoana Holly RSV Not detected Normal NOT DETECTED [facility] Comment on above: Performed By: #### C BC #### [facility] [address] [place] [address] Yoana Holly SARS-CoV-2 (COVID-19) RNA CARLITA+probe Ql (Unsp spec) Not detected Normal NOT DETECTED The [facility] Comment on above: Performed By: #### C BC #### [facility] [address] [place] [address] Yoanatammy Barrera URINE MICROSCOPIC ONLYon AMORPHOUS CRYSTALS MANY Normal The [facility] Comment on above: Performed By: #### C VDTBH #### [facility] [address] [place] [address] Yoana Holly BACTERIA NONE SEEN Normal NONE SEEN The [facility] Comment on above: Performed By: #### C VDTBH #### [facility] [address] [place] [address] Yoana Holly Bacteria identified Cx Nom (U) NOT INDICATED Normal The [facility] Comment on above: Performed By: #### C VDTBH #### [facility] [address] [place] [address] Yoana Holly CAST NONE SEEN Normal NONE SEEN [facility] Comment on above: Performed By: #### C VDTBH #### [facility] [address] [place], [place] [address] Yoana Holly Crystals LM Nom (Urine sed) SEEN Abnormal NONE SEEN The [facility] Comment on above: Performed By: #### C VDTBH #### [facility] [address] [place] [id number] Yoana Holly Epithelial cells LM Ql (Urine sed) FEW Abnormal NONE SEEN /RARE The [facility] Comment on above: Performed By: #### C VDTBH #### [facility] [address] [place], [place] [address] Yoana Holly MUCOUS NONE SEEN Normal NONE SEEN The [facility] Comment on above: Performed By: #### C VDTBH #### [facility] [address] [place] [id number] Yoana Holly RBC 10-20 Abnormal 0-2 The [facility] Comment on above: Performed By: #### C VDTBH #### [facility] [address] [id number] Yoana Holly WBC NONE SEEN Normal NONE SEEN The [facility] Comment on above: Performed By: #### C VDTBH #### [facility] [address] [place], [place] [address] Yoana Holly Encounters Encounter Date Encounter Type Care Provider Facility Start: 01-06-2024 End: 01-06-2024 ambulatory AURORA GILLDELORIS Not Available Start: 11-12-2023 End: 11-12-2023 ambulatory KEIKO RODRÍGUEZ Facility:[facility] Start: 11-12-2023 End: 11-12-2023 Patient encounter procedure KEIKO RODRÍGUEZ [facility] Start: 06-21-2023 Refill Teodoro rice MD Work Phone: [facility] Comment on above: Flexural atopic derm atitis Start: 04-23-2023 End: 04-23-2023 ambulatory KEIKO RODRÍGUEZ Facility:[facility] Start: 04-23-2023 End: 04-23-2023 Patient encounter procedure KEIKO RODRÍGUEZ [facility] Start: 02-27-2023 End: 02-27-2023 ambulatory MANAGER THERAPY Becca L Annmarie Facility:[facility] Start: 12-21-2022 End: 12-21-2022 ambulatory MANAGER THERAPY Becca L Annmarie Facility:[facility] Start: 12-17-2022 ambulatory KEIKO ANNE Facility :[facility] Start: 03-13-2021 End: 03-14-[address] LISBET KAYE JR Facility:[facility] Start: 12-28-2020 End: 12-29-2020 ambulatory HAYLEY THOMAS Facility:[facility] Start: 12-26-2020 End: 12-26-2020 ambulatory HAYLEY THOMAS Facility:[facility] Start: 12-26-2020 End: 12-27-2020 ambulatory HAYLEY THOMAS Facility:[facility] Start: 09-16-2020 End: 09-17-[address] SCAR PINA Facility:[facility] Start: 2020 End: 09-13-[address] SCAR PINA Facility:[facility] Start: 09-09-2020 End: 09-10-[address] SCAR PINA Facility:[facility] Start: 08-12-2020 End: 08-13-[address] SCAR PINA Facility:[facility] Start: 08-11-2020 Encounter for preprocedural laboratory examination DR LISBET KAYE JR [facility] Start: 08-10-2020 End: 08-10-[address] LISBET KAYE JR Facility:[facility] Start: 08-06-2020 End: 08-07-2020 ambulatory HAYLEY THOMAS Facility:[facility] Start: 08-05-2020 End: 08-06-[address] SCAR PINA Facility:[facility] Start: 08-05-2020 End: 08-06-2020 Encounter for preprocedural laboratory examination DR SCAR PINA Facility:[facility] Start: 07-15-2020 End: 07-15-[address] LISBET KAYE JR Facility:[facility] Start: 07-14-2020 End: 07-14-2020 ambulatory LOS BUSCH Facility:[facility] Procedures Date Procedure Procedure Detail Performing Clinician Start: 08-10-2020 Extracorporeal shock wave lithotripsy of calculus of kidney KEKIO RODRÍGUEZ Start: 07-15-2020 Retrograde pyelogram ROSAURA RODRÍGUEZ Start: 04-22-2019 Laparoscopic cholecystectomy KEIKO RODRÍGUEZ Start: 08-12-2018 Acute tear of menisc us of left knee (disorder) KEIKO RODRÍGUEZ Start: 11-15-2017 Rupture of anterior cruciate ligament (disorder) KEIKO RODRÍGUEZ section KEIKO RAMOS Comment on above: x2 Plan of Treatment Date Care Activity Detail Author Start: 01-18-2023 Influenza vaccination Influenza Vacc ine (#1) [facility] Start: 09-13-2015 Screening for malign ant neoplasm of cervix [facility] Start: 2006 Screening for malign ant neoplasm of cervix Pap Smear [facility] Immunizations Immunization Date Immunization Notes Care Provider Fa cility 07-07-2021 SARS-CoV-2 (COVID-19 ) mRNA-1273 vaccine KEIKO RODRÍGUEZ [facility] 01-13-2021 SARS-CoV-2 (COVID-19 ) mRNA-1273 vaccine KEIKO RODRÍGUEZ [facility] 01-13-2021 tetanus toxoid, redu terese diphtheria toxoid, and acellular pertussis vaccine, adsorbed KEIKO RODRÍGUEZ [facility] 12-16-2020 SARS-CoV-2 (COVID-19 ) mRNA-1273 vaccine KEIKO RODÍRGUEZ [facility] 03-03-2020 influenza virus vaccine, unspecified formulation KEIKO RODRÍGUEZ [facility] 01-19-2020 influenza virus vaccine, unspecified formulation KEIKO RODRÍGUEZ [facility] 01-18-2017 influenza virus vaccine, unspecified formulation KEIKO RODRÍGUEZ [facility] [place] Payers Date Payer Category Payer Unknown BCBS BCBS [id number] 2022-Present [phone] [address] [place] [address] [id number] 2022 Unknown [id number] 1985 Unknown [id number] 2.16.840.1.991777.3.579.2 .593 1985 Unknown [id number] 2.16.840.1.585508.3.579.2 .593 1985 Unknown [id number] 2.16.840.1.976906.3.579.2 .593 1985 Unknown [id number] 2.16.840.1.169127.3.579.2 .593 1985 Unknown [id number] 2.16.840.1.773888.3.579.2 .593 1985 Unknown [id number] 2.16.840.1.121179.3.579.2 .593 1985 Unknown [id number] 2.16.840.1.815665.3.579.2 .593 1985 Unknown [id number] 2.16.840.1.507751.3.579.2 .593 1985 Unknown [id number] 2.16.840.1.418482.3.579.2 .593 1985 Unknown [id number] 2.16.840.1.966487.3.579.2 .593 1985 Unknown [id number] 2.16.840.1.123962.3.579.2 .593 1985 Unknown [id number] 2.16.840.1.394336.3.579.2 .593 1985 Unknown [id number] 2.16.840.1.910002.3.579.2 .593 1985 Unknown [id number] 2.16.840.1.446932.3.579.2 .727 1985 Unknown [id number] 2.16.840.1.648092.3.579.2 .727 1985 Unknown [id number] 2.16.840.1.967999.3.579.2 .727 1985 Unknown [id number] 2.16.840.1.656119.3.579.2 .727 1985 Unknown [id number] 2.16.840.1.481014.3.579.2 .727 1985 Unknown [id number] 2.16.840.1.371980.3.579.2 .1259 1959 Private Health Insurance [id number] 1959 Private Health Insurance [id number] Social History Date Type Detail Facility Start: 12-28-2022 End: 04-23-2023 Tobacco smoking status Never smoked tobacco (finding) [facility] Tobacco smoking status Never [facility] Start: 02-18-2023 Sex Assigned At Female F [facility] Start: 12-28-2022 Tobacco use and exposure Smokeless tobacco non-user [facility] Start: 02-18-2023 Alcohol intake Current drinke r of alcohol (finding) [facility] Start: 02-18-2023 History of Social function [facility] Start: 12-27-2022 Alcohol Comment monthly or less [facility] Start: 1985 Sex Assigned At Not on file [facility] Functional Status Date Assessment Result Facility 04-23-2023 Functional Status N/A [facility] Hospital Discharge instructions 04-23-2023 Note Date & Type Note Facility 04-23-2023 Hospital Discharg e instructions Patient Education 04/23/2023 08:59:42 Dietary Guidelines to Help Prevent Kidney Stones Dietary Guidelines to Help Prevent Kidney Stones Kidney stones are deposits of minerals and salts that form inside your kidneys. Your risk of developing kidney stones may be greater depending on your diet, your lifestyle, the medicines you take, and whether you have certain medical conditions. Most people can lower their risks of developing kidney stones by following these dietary guidelines. Your dietitian may give you more specific instructions depending on your overall health and the type of kidney stones you tend to develop. What are tips for following this plan? Reading food labels Choose foods with no salt added or low-salt labels. Limit your salt (sodium) intake to less than 1,500 mg a day. Choose foods with calcium for each meal and snack. Try to eat about 300 mg of calcium at each meal. Foods that contain 200 500 mg of calcium a serving include: ?8 oz (237 mL) of milk, xmuogtx-cncbwezlzhfj-efpyw milk, and calcium-fortifiedfruit juice. Calcium-fortified means that calcium has been added to these drinks. ?8 oz (237 mL) of kefir, yogurt, and soy yogurt. ?4 oz (114 g) of tofu. ?1 oz (28 g) of cheese. ?1 cup (150 g) of dried figs. ?1 cup (91 g) of cooked broccoli. ?One 3 oz (85 g) can of sardines or mackerel. Most people need 1,000 1,500 mg of calcium a day. Talk to your dietitian about how much calcium is recommended for you. Shopping Buy plenty of fresh fruits and vegetables. Most people do not need to avoid fruits and vegetables, even if these foods contain nutrients that may contribute to kidney stones. When shopping for convenience foods, choose: ?Whole pieces of fruit. ?Pre-made salads with dressing on the side. ?Low-fat fruit and yogurt smoothies. Avoid buying frozen meals or prepared deli foods. These can be high in sodium. Look for foods with live cultures, such as yogurt and kefir. Choose high-fiber grains, such as whole-wheat breads, oat bran, and wheat cereals. Cooking Do not add salt to food when cooking. Place a salt shaker on the table and allow each person to add their own salt to taste. Use vegetable protein, such as beans, textured vegetable protein (TVP), or tofu, instead of meat in pasta, casseroles, and soups. Meal planning Eat less salt, if told by your dietitian. To do this: ?Avoid eating processed or pre-made food. ?Avoid eating fast food. Eat less animal protein, including cheese, meat, poultry, or fish, if told by your dietitian. To do this: ?Limit the number of times you have meat, poultry, fish, or cheese each week. Eat a diet free of meat at least 2 days a week. ?Eat only one serving each day of meat, poultry, fish, or seafood. ?When you prepare animal proteins, cut pieces into small portion sizes. For most meat and fish, one serving is about the size of the palm of your hand. Eat at least five servings of fresh fruits and vegetables each day. To do this: ?Keep fruits and vegetables on hand for snacks. ?Eat one piece of fruit or a handful of berries with breakfast. ?Have a salad and fruit at lunch. ?Have two kinds of vegetables at dinner. You may be told to limit foods that are high in a substance called oxalate. These include: ?Spinach (cooked), rhubarb, beets, sweet potatoes, and Venezuelan chard. ?Peanuts. ?Potato chips, welsh fries, and baked potatoes with skin on. ?Nuts and nut products. ?Chocolate. If you regularly take a diuretic medicine, make sure to eat at least 1 or 2 servings of fruits or vegetables that are high in potassium each day. These include: ?Avocado. ?Banana. ?Lamar, prune, carrot, or tomato juice. ?Baked potato. ?Cabbage. ?Beans and split peas. Lifestyle Drink enough fluid to keep your urine pale yellow. This is the most important thing you can do. Spread your fluid intake throughout the day. If you drink alcohol: ?Limit how much you have to: ?0 1 drink a day for women who are not . ?0 2 drinks a day for men. ?Know how much alcohol is in your drink. In the [place] one drink equals one 12 oz bottle of beer (355 mL), one 5 oz glass of wine (148 mL), or one 1 oz glass of hard liquor (44 mL). Lose weight if told by your health care provider. Work with your dietitian to find an eating plan and weight loss strategies that work best for you. General information Talk to your health care provider and dietitian about taking daily supplements. Depending on your health and the cause of your kidney stones, you may be told: ?Do not take high-dose supplements of vitamin C (1,000 mg a day or more). ?To take a calcium supplement. ?To take a daily probiotic supplement. ?To take other supplements such as magnesium, fish oil, or vitamin B6. Take csmz-ftd-aydmgrx and prescription medicines only as told by your health care provider. These include supplements. What foods should I limit? Limit your intake of the following foods, or eat them as told by your dietitian. Vegetables Spinach. Rhubarb. Beets. Canned vegetables. Pickles. Olives. Baked potatoes with skin. Grains Wheat bran. Baked goods. Salted crackers. Cereals high in sugar. Meats and other proteins Nuts. Nut butters. Large portions of meat, poultry, or fish. Salted, precooked, or cured meats, such as sausages, meat loaves, and hot dogs. Dairy Cheeses. Beverages Regular soft drinks. Regular vegetable juice. Seasonings and condiments Seasoning blends with salt. Salad dressings. Soy sauce. Ketchup. Barbecue sauce. Other foods Canned soups. Canned pasta sauce. Casseroles. Pizza. Lasagna. Frozen meals. Potato chips. Bahraini fries. The items listed above may not be a complete list of foods and beverages you should limit. Contact a dietitian for more information. What foods should I avoid? Talk to your dietitian about specific foods you should avoid based on the type of kidney stones you have and your overall health. Fruits Grapefruit. The item listed above may not be a complete list of foods and beverages you should avoid. Contact a dietitian for more information. Summary Kidney stones are deposits of minerals and salts that form inside your kidneys. You can lower your risk of kidney stones by making changes to your diet. The most important thing you can do is drink enough fluid. Drink enough fluid to keep your urine pale yellow. Talk to your dietitian about how much calcium you should have each day, and eat less salt and animal protein as told by your dietitian. This information is not intended to replace advice given to you by your health care provider. Make sure you discuss any questions you have with your health care provider. Document Revised: 08/16/2022 Document Reviewed: 08/16/2022 [employer] Patient Education 2022 [employer]. Follow Up Care 03/11/2023 10:57:48 With:KEIKO RODRÍGUEZ PA-C, URL Address: [address] [place] [address] [phone] When: Unknown Comments:6 mos w/ KUB & met w/u [facility] Evaluation + Plan note Note Date & Type Note Facility Evaluation + Plan note Future Appointments Appointment Date:11/12/2023 08:30:00 AM Scheduled Provider:KEIKO RODRÍGUEZ PA-C Location:[facility] Appointment Type:URO Office Visit [facility] Evaluation note Note Date & Type Note Facility Evaluation note Diagnosis Flexural atopic dermatitis Other atopic dermatitis and related conditions documented in this encounter [facility] Hospital course Narrative Note Date & Type Note Facility Hospital course Narrative No data available for this section [facility] Hospital Discharge instructions Note Date & Type Note Facility Hospital Discharge instructions No data available for this section [facility] [employer] Progress note Note Date & Type Note Facility Progress note No data available for this section [facility] Summary Purpose Family History No Family History Records Found No data available for this section No data available for this section No Family History Records FoundNo Family History Records Found Advance Directives No Advanced Directives Records FoundNo Advanced Directives Records FoundNo Advanced Directives Records Found Additional Source Comments INFORMATION SOURCE (unrecogn ized section and content) DATE CREATED AUTHOR 03/18/2021 [facility] DATE CREATED AUTHOR AUTHOR'S ORGANIZ ATION 11/14/2023 Prashanth Espinosa [facility] DATE CREATED AUTHOR AUTHOR'S ORGANIZ ATION 01/07/2024 [facility] EPIC Patient Care team informatio n (unrecognized section and content) Personnel Name: Becca Cruz Address: Address: [address] [place] [address]- Personnel Name: Becca Cruz Address: Address: [address] [place] [address]- Reason for Visit (unrecogniz ed section and content) Reason Comments Med Refill FOR RECORDS PERTAINING TO PATIENTS WHO ARE OR HAVE BEEN ENROLLED IN A CHEMICAL DEPENDENCY/SUBSTANCEABUSE PROGRAM, SOME INFORMATION MAY BE OMITTED. This clinical summary was aggregated from multiple sources. Caution should be exercised in using it in the provision of clinical care. This summary normalizes information from multiple sources, and as a consequence, information in this document may materially change the coding, format and clinical context of patient data. In addition, data may be omitted in some cases. CLINICAL DECISIONS SHOULD BE BASED ON THE PRIMARY CLINICAL RECORDS. [email or web address] provides no warranty or guarantee of the accuracy or completeness of information in this document.
[2024-02-08 09:46] LABS: Basophils Absolute Auto 0.1 10^3/uL (0.0-0.1); Basophils Percent Auto 1.7 % (0.2-2.0); Eosinophils Absolute Auto 0.2 10^3/uL (0.0-0.7); Eosinophils Percent Auto 3.7 % (0.9-7.0); Hematocrit 36.6 % (36.0-48.0); Hemoglobin 10.9 g/dL (12.0-16.0); Immature Granulocytes Abs Auto 0.02 10^3/uL (0.00-0.03); Immature Granulocytes Pct Auto 0.4 % (0.0-0.5); Lymphocytes Absolute Auto 1.6 10^3/uL (1.2-3.8); Lymphocytes Percent Auto 30.6 % (20.5-60.0); Mean Corpuscular HGB Conc 29.8 g/dL (29.9-35.2); Mean Corpuscular Hemoglobin 19.6 pg (26.7-34.0); Mean Corpuscular Volume 65.9 fL (81.0-99.0); Mean Platelet Volume 9.9 fL (9.5-13.5); Monocytes Absolute Auto 0.5 10^3/uL (0.3-0.8); Neutrophils Absolute Auto 2.9 10^3/uL (1.4-6.5); Neutrophils Percent Auto 54.6 % (43.0-75.0); Platelet Count 405 10^3/uL (150-450); Red Blood Count 5.55 10^6/uL (4.20-5.40); Red Cell Distribution Width 14.6 % (11.0-15.0); White Blood Count 5.4 10^3/uL (4.0-11.0)
[2024-02-08 10:12] LABS: Free T4 0.89 ng/dL (0.76-1.46)
[2024-02-08 10:19] LABS: Alanine Aminotransferase 22 U/L (14-59); Albumin Globulin Ratio 0.9; Albumin Level 3.4 g/dL (3.4-5.0); Alkaline Phosphatase 64 U/L (46-116); Anion Gap 12.3; Aspartate Amino Transferase 13 U/L (15-37); BUN Creatinine Ratio 22.1; Bilirubin Total 0.5 mg/dL (0.2-1.0); Calcium 9.4 mg/dL (8.5-10.1); Carbon Dioxide 24.8 mmol/L (21.0-32.0); Chloride 103 mmol/L (98-107); Chol HDL Ratio 2.4; Cholesterol 175 mg/dL (<=200); Estimated GFR (African America >60 (>=60); Estimated GFR (Non-African Ame >60 (>=60); Free T3 2.99 pg/mL (2.18-3.98); Globulin 3.6 g/dL; Glucose 89 mg/dL (74-106); HDL Cholesterol 72 mg/dL (40-60); Potassium 4.1 mmol/L (3.5-5.1); Sodium 136 mmol/L (136-145); Thyroid Stimulating Hormone 4.467 uIU/mL (0.358-3.740); Triglycerides 93 mg/dL (<=150); VLDL CHOLESTEROL 18.6 mg/dL
[2024-02-08 10:25] LABS: Estimated Average Glucose 105 mg/dL; Glycohemoglobin A1C 5.3 % (4.5-6.2)
== END 2024-02-08 09:12 | disposition home or self-care (01) ==
LOC: LAB 09:11
PROVIDERS: PCP Nurse Practitioner; Visit Provider Nurse Practitioner
DX: Z00.00 Encounter for general adult medical examination without abnormal findings (principal); E03.9 Hypothyroidism, unspecified; I10 Essential (primary) hypertension
CPT/HCPCS: 36415; 80053; 80061; 83036; 84439; 84443; 84481; 85025

== ENCOUNTER 2024-03-19 07:28 | Outpatient (OUT) | payer BC, SELFPAY ==
--- OUTSIDE RECORDS SUMMARY | 2024-03-19 07:35 | XMS_ITS | CCD ---
Author Organization [facility] Care Team Providers Care Traffic Officer Name Role Phone YOVANI, DR SCAR Cervantes Primary Care Unavailable DESI FRASER, DR LISBET Akins Admitting Galileo KAYE JR, DR LISBET Akins Attending Unavailedie PINA, DR SCAR Cervantes Consulting Unavailable FANTASMA, DR RACHEL Broussard Consulting Unavailable DESI FRASER, DR LISBET Akins Consulting Galiloe PINA, DR SCAR Cervantes Primary Care Unavailable [...] Attending Unavailedie KAYE JR, DR LISBET Akins Consulting [...] YOVANI, DR SCAR Cervantes Primary Care Unavailable JO-ANN, LOS Consulting Unavailable HAYLEY THOMAS Attending Unavailable WILLIAM, HAYLEY Admitting Unavailable YOVANI, DR SCAR Cervantes Primary [...] Primary Care Unavailable WILLIAM, HAYLEY Attending Unavailable WILLIAM, HAYLEY Consulting Unavailable YOVANI, DR SCAR Cervantes Attending Unavailable YOVANI, DR SCAR Cervantes Admitting Unavailable YOVANI, DR SCAR Cervantes Primary Care Unavailable YOVANI, DR SCAR Cervantes Consulting Unavailable Becca Anguiano Primary Care Physician Unavailable Primary Care Provider UnavailAURORA Dowd Attending Unavailable VIVIANA RODRÍGUEZ Attending UnavailBecca Castillo Attending Unavailable Becca Anguiano Attending Unavailable Becca Anguiano Attending Unavailable VIVIANA RODRÍGUEZ Attending Hailey hernandez Allergies Allergy Classification Reported Allergen(s) Allergy Type Date of Onset Reaction(s) Facility (1 source) No Known Medication Allergies; Translations: [No Known Medication Allergies] Propensity to adverse reactions (disorder) [facility] Repository Medications Current Medications Medication Drug [...] to affected areas once daily after washing, [id number], 170, cm, 04/23/23 8:29:00 EST, Height/Length [...] 2PM, # 90 tab(s), Refills(s) 0, Pharmacy: [facility] #[id number], 170, cm, 04/23/23 8:29:00 EST, Height/Length Dosing, 107, kg, 04/23/23 8:29:00 EST, Weight Dosing Start Date: 11/11/23 Status: Ordered Start: 11-11-2023 take 1 capsule by mo [facility] once daily in the morning Adderall XR 30 mg Cap-ER 30 mg = 1 cap(s), Oral, qAM, # 90 cap(s), Refills(s) 0, Pharmacy: [facility] #[id number], 170, cm, 04/23/23 8:29:00 EST, Height/Length Dosing, 107, kg, 04/23/23 8:29:00 EST, Weight Dosing Start Date: 11/11/23 Status: Ordered Start: 04-04-2023 take 1 capsule by [facility] once daily in the morning Adderall XR 30 mg Cap-ER 30 mg = 1 cap(s), Oral, qAM, # 90 cap(s), Refills(s) 0, Pharmacy: [facility] #[id number], 169, cm, 02/27/23 11:32:00 EDT, Height/Length Dosing, 109.7, kg, 02/27/23 11:32:00 EDT, Weight Dosing Start Date: 04/04/23 Status: Ordered Start: 09-28-2022 take 1 tablet by zach once daily amphetamine-dextroamphetamine 20 mg Tab See Instructions, TAKE 1 TABLET BY MOUTH EVERYDAY AT 2PM, # 90 tab(s), Refills(s) 0, Pharmacy: [facility] #[id number], 169, cm, 02/27/23 11:32:00 EDT, Height/Length [...] Start: 04-19-2023 take 2 tablets by mo [facility] once daily in the morning cetirizine (ZyrTEC) [...] Daily, # 90 tab(s), Refills(s) 0, Pharmacy: [id number], 170, cm, 04/23/23 8:29:00 EST, Height/Length Dosing, 107, kg, 04/23/23 8:29:00 EST, Weight Dosing Start Date: 09/24/23 Status: Ordered Start: 04-04-2023 take 1 tablet by zach once daily escitalopram 10 mg Tab 10 mg = 1 tab(s), Oral, Daily, # 30 tab(s), Refills(s) 0, Pharmacy: [id number], 169, cm, 02/27/23 11:32:00 EDT, Height/Length Dosing, 109.7, kg, 02/27/23 11:32:00 EDT, Weight Dosing Start Date: 04/04/23 Status: Ordered Start: 04-01-2023 take 1 tablet by zach once daily escitalopram 5 mg oral tablet 5 mg = 1 tab(s), Oral, Daily, # 30 tab(s), Refills(s) 5, Pharmacy: [id number], 169, cm, 02/27/23 11:32:00 EDT, Height/Length [...] at the same time. 0 Active thyroid (half-way) 90 mg oral tablet (2 sources) Start: 06-21-2023 take 1 tablet by mouth once daily [place] Thyroid 90 mg Tab 90 mg = 1 tab(s), Oral, Daily, # 90 tab(s), Refills(s) 3, Pharmacy: [id number], 170, cm, 04/23/23 8:29:00 EST, Height/Length Dosing, 107, kg, 04/23/23 8:29:00 EST, Weight Dosing Start Date: 06/21/23 Status: Ordered Start: 04-08-2019 take 1 tablet by mouth once da young [place] Thyroid 90 mg Tab 90 mg = 1 tab(s), Oral, Daily Start Date: 04/08/19 Status: Ordered Completed/Discontinued Medications Medication Drug Class(es) Dates Sig (Normalized) Sig (Original) drospirenone / Ethinyl Estradiol (3 sources) Progestin, Estrogen Start: 03-12-2023 take 1 tablet by mouth once daily drospirenone-ethi nyl estradiol 3 mg-0.03 mg Tab 1 tab(s), Oral, Daily, 84 tab(s), Refill(s) 3, [id number], 169, cm, 02/27/23 11:32:00 EDT, Height/Length [...] four, # 2 tab(s), Refills(s) 1, Pharmacy: [id number], 170, cm, 04/23/23 8:29:00 EST, Height/Length [...] days, # 9 tab(s), Refills(s) 0, Pharmacy: [id number], 169, cm, 12/21/22 14:35:00 EDT, Height/Length [...] Test Name Value Interpretation Reference Range Facility Ambulatory Visit Summaryon 0 02-10-2024 Ambulatory Visit Summary Ambulatory Visit Summary STEVEN DE LA TORRE :1985 Visit Date:02/10/2024 Ambulatory Visit Instructions Your Diagnosis Non-smoker BMI 40.0-44.9, adult Obesity, morbid, BMI 40.0-49.9 Your Care Team Attending Physician - Becca Cruz Primary Care Physician - Becca Cruz This Is Your Medications List acetaZOLAMIDE (acetaZOLAMIDE 250 mg Tab) adapalene/benzoyl peroxide/clindamycin topical (adapalene/benzoyl peroxide/clindamycin 0.3%-2.5%-1% topical gel) amphetamine-dextroamp hetamine (Adderall XR 30 mg Cap-ER) amphetamine-dextroamp hetamine (amphetamine-dextroam phetamine 20 mg Tab) cetirizine (cetirizine 10 mg Tab) drospirenone-ethinyl estradiol (drospirenone-ethinyl estradiol 3 mg-0.03 mg Tab) erenumab (Aimovig SureClick Autoinjector-aooe 140 mg/mL subcutaneous solution) escitalopram (escitalopram 10 mg Tab) fremanezumab (Ajovy Autoinjector 225 mg/1.5 mL subcutaneous solution) Procedures Performed ESWL of kidney (08/10/2020), Retrograde pyelogram (07/15/2020), Laparoscopic cholecystectomy (04/22/2019), Acute tear of meniscus of left knee (08/12/2018), ACL - Anterior cruciate ligament rupture (11/15/2017), Caesarean section. Discharge Vitals Temperature (Temporal Artery) 36.6 ?C Heart Rate (Peripheral) 104 Respiratory Rate 16 Blood Pressure 160/92 Height 170 cm Height 67 in Weight 115.9 kg Weight 254.98 lb BMI 40.1 What to do next Scheduled Follow-Up Appointments Saturday 10:00 AM EST With: Becca Cruz Where: [address] [address]- Medications What How Much When Instructions Unchanged acetaZOLAMIDE (acetaZOLAMIDE 250 mg Tab) 2 Tablets By Mouth 2 times a day Unchanged adapalene/ benzoyl peroxide/ clindamycin topical (adapalene/ benzoyl peroxide/ clindamycin 0.3%-2.5%-1% topical gel) See instructions apply thin layer to affected areas once daily after washing Unchanged amphetamine-dextroamp hetamine (Adderall XR 30 mg Cap-ER) 1 Capsules By Mouth Once a day (in the morning) Unchanged amphetamine-dextroamp hetamine (amphetamine-dextroam phetamine 20 mg Tab) See instructions TAKE 1 TABLET BY MOUTH EVERYDAY AT 2PM Unchanged cetirizine (cetirizine 10 mg Tab) Unchanged drospirenone-ethinyl estradiol (drospirenone-ethinyl estradiol 3 mg-0.03 mg Tab) See instructions TAKE 1 TABLET BY MOUTH EVERY DAY Unchanged erenumab (Aimovig SureClick Autoinjector-aooe 140 mg/ mL subcutaneous solution) 140 Milligram Unchanged escitalopram (escitalopram 10 mg Tab) 1 Tablets By Mouth Every day Unchanged fremanezumab (Ajovy Autoinjector 225 mg/ 1.5 mL subcutaneous solution) INJECT SUBCUTANEOUSLY ONCE A MONTH DIRECTED 30 DAYS Allergies No Known Medication Allergies Problems Ongoing - Any problem that you are currently receiving treatment for. ADHD Adult ADHD Anemia Anxiety Asymptomatic microscopic hematuria BMI 40.0-44.9, adult Cervical cancer screening Chronic cholecystitis with calculus Flank pain Hypothyroid Hypothyroidism Kidney stones Nausea and vomiting Nocturia Obesity, Class II, BMI 35-39.9 Obesity, morbid, BMI 40.0-49.9 Pseudotumor cerebri Skin cancer screening Symptomatic cholelithiasis Thalassemia Ureteral stone with hydronephrosis Well woman exam Patient Survey You may receive a survey via text or e-mail asking about your office visit. Please share your experience with us by completing your survey. We appreciate your feedback and thank you for choosing us for your care. Normal [facility] Family Medicine Office/Clini c Noteon 02-10-2024 Family Medicine Office/Clinic Note Family Medicine Office/Clinic Note Chief Complaint Discuss BP HPI Staff Pt is here today to discuss BP & medications. Health Maintenance: Colonoscopy: NA Dexa: NA Mammo: NA Pap: Last Labs: 02/08/24 ([facility]) Follow up for Mental Status: Medication adherence- Yes, takes medication as prescribed Medication refill needed: _ Suicidal thoughts-Not at this time Most recent RANJAN: 6 Most recent PHQ: 8 History of Present Illness pt presents today for elevated BP, anxiety and to go over labs Review of Systems PHQ Score Initial Depression Screen Score: 0 SCORE Physical Exam Vitals & Measurements T: 36.6 ?C(Temporal Artery) HR: 104(Peripheral) RR: 16 BP: 160/92 SpO2: 99% HT: 67 in HT: 170 cm WT: 115.9 kg WT: 254.98 lb BMI: 40.1 General: alert, no acute distress ENMT: oral mucosa moist, no pharyngeal erythema or exudate Cardiovascular: regular rate and rhythm, normal peripheral perfusion Respiratory: Lungs CTA, respirations non labored Extremities: no deformity, no trauma Neurological: oriented x 4, LOC appropriate for age, CN II-XII intact, motor strength equal & normal bilaterally, speech normal Assessment/Plan 1. Hypertension (I10: Essential (primary) hypertension) BP was elevated at eye doctor. is elevated in office today as well. pt c/o headaches. will start amlodipine 5mg. RTC 6 weeks Ordered: amlodipine, 5 mg = 1 tab(s), Oral, Daily, # 30 tab(s), Refills(s) 1, Pharmacy: [facility] #[id number], 170, cm, 02/10/24 10:52:00 EDT, Height/Length Dosing, 115.9, kg, 02/10/24 10:52:00 EDT, Weight Dosing busPIRone, 7.5 mg = 1 tab(s), Oral, TID, # 90 tab(s), Refills(s) 0, Pharmacy: [id number], 170, cm, 02/10/24 10:52:00 EDT, Height/Length Dosing, 115.9, kg, 02/10/24 10:52:00 EDT, Weight Dosing levothyroxine, 100 mcg = 1 tab(s), Oral, Daily, # 30 tab(s), Refills(s) 1, Pharmacy: [id number], 170, cm, 02/10/24 10:52:00 EDT, Height/Length Dosing, 115.9, kg, 02/10/24 10:52:00 EDT, Weight Dosing 2. Hypothyroid (E03.9: Hypothyroidism, unspecified) TSH was elevated. pt not able to afford armour thyroid. will send syntrhoid. will recheck TSH in 6 weeks Ordered: amlodipine, 5 mg = 1 tab(s), Oral, Daily, # 30 tab(s), Refills(s) 1, Pharmacy: [id number], 170, cm, 02/10/24 10:52:00 EDT, Height/Length Dosing, 115.9, kg, 02/10/24 10:52:00 EDT, Weight Dosing busPIRone, 7.5 mg = 1 tab(s), Oral, TID, # 90 tab(s), Refills(s) 0, [id number] 170, cm, 02/10/24 10:52:00 EDT, Height/Length Dosing, 115.9, kg, 02/10/24 10:52:00 EDT, Weight Dosing levothyroxine, 100 mcg = 1 tab(s), Oral, Daily, # 30 tab(s), Refills(s) 1, [id number] 170, cm, 02/10/24 10:52:00 EDT, Height/Length Dosing, 115.9, kg, 02/10/24 10:52:00 EDT, Weight Dosing 3. Anxiety (F41.9: Anxiety disorder, unspecified) pt has a lot of situational anxiety with work and personal issues. will increase lexapro to 20mg. will start buspar TID as needed Ordered: amlodipine, 5 mg = 1 tab(s), Oral, Daily, # 30 tab(s), Refills(s) 1, [id number] 170, cm, 02/10/24 10:52:00 EDT, Height/Length Dosing, 115.9, kg, 02/10/24 10:52:00 EDT, Weight Dosing busPIRone, 7.5 mg = 1 tab(s), Oral, TID, # 90 tab(s), Refills(s) 0, [id number], 170, cm, 02/10/24 10:52:00 EDT, Height/Length Dosing, 115.9, kg, 02/10/24 10:52:00 EDT, Weight Dosing levothyroxine, 100 mcg = 1 tab(s), Oral, Daily, # 30 tab(s), Refills(s) 1, [id number], 170, cm, 02/10/24 10:52:00 EDT, Height/Length Dosing, 115.9, kg, 02/10/24 10:52:00 EDT, Weight Dosing 4. Non-smoker (Z78.9: Other specified health status) continue not smoking Ordered: amlodipine, 5 mg = 1 tab(s), Oral, Daily, # 30 tab(s), Refills(s) 1, [id number], 170, cm, 02/10/24 10:52:00 EDT, Height/Length Dosing, 115.9, kg, 02/10/24 10:52:00 EDT, Weight Dosing busPIRone, 7.5 mg = 1 tab(s), Oral, TID, # 90 tab(s), Refills(s) 0, [id number], 170, cm, 02/10/24 10:52:00 EDT, Height/Length Dosing, 115.9, kg, 02/10/24 10:52:00 EDT, Weight Dosing levothyroxine, 100 mcg = 1 tab(s), Oral, Daily, # 30 tab(s), Refills(s) 1, [id number], 170, cm, 02/10/24 10:52:00 EDT, Height/Length Dosing, 115.9, kg, 02/10/24 10:52:00 EDT, Weight Dosing predniSONE, 20 mg = 1 tab(s), Oral, As Directed, Take two tabs by mouth daily for three days, then one tab daily for three days, # 9 tab(s), Refills(s) 0, [id number], 169, cm, 12/21/22 14:35:00 EDT, Height/Length Dosing, 103.7, kg, 12/21/22 14:3... 5. BMI 40.0-44.9, adult (Z68.41: Body mass index [BMI] 40.0-44.9, adult) BMI education given Ordered: amlodipine, 5 mg = 1 tab(s), Oral, Daily, # 30 tab(s), Refills(s) 1, [id number], 170, cm, 02/10/24 10:52:00 EDT, Height/Length Dosing, 115.9, kg, 02/10/24 10:52:00 EDT, Weight Dosing busPIRone, 7.5 mg = 1 tab(s), Oral, TID, # 90 tab(s), Refills(s) 0, Pharmacy: [id number], 170, cm, 02/10/24 10:52 (more content not included)... [facility] Comment on above: Result Comment: Elec tronically Signed By: Becca Cruz\.br\Date and Time Signed: 02/10/24 11:53 EDT [facility] [id number] .00TIFF [facility] [id number] .00TIFF [facility] [id number] .00TIFF [facility]son 04-24-2023 Forms [id number] .00TIFF [facility] Ambulatory Visit Summaryon 1 06-24-2022 Ambulatory Visit Summary WILSTEVEN :1985 Visit Date:04/23/2023 Ambulatory Visit Instructions Your Diagnosis Kidney stones Flank pain Tests Performed Urnls Dip Stick Auto w/o Microscopy POC 77308 XR Abdomen 1 View -- Results Pending [...] predniSONE (predniSONE 20 mg Tab) thyroid desiccated ([place] Thyroid 90 mg Tab) Procedures Performed ESWL [...] KEIKO RODRÍGUEZ PA-C Where: [facility] Patient Educationon 04-23-20 Patient Education Nephrology [...] Spinach (cooked), rhubarb, beets, sweet potatoes, and Ugandan chard. ? Peanuts. ? Potato chips, macedonian fries, and baked potatoes with skin on. ? Nuts and nut products. ? Chocolate. ? If you regularly take a diuretic medicine, make sure to eat at least 1 or 2 servings of fruits or vegetables that are high in potassium each day. These include: ? Avocado. ? Banana. ? [place], prune, carrot, or tomato juice. ? Baked [...] fish oil, or vitamin B6. ? Take xbyl-lyd-ujesbpo and prescription medicines only as told by your health care provider. These include supplements. What foods sh (more content not included)... Normal [facility] Urology Office/Clinic Noteon 04-23-2023 Urology Office/Clinic Note Chief Complaint 2yr KUB HPI Staff Former DLS pt 2yr KUB DX: Ureteral Stone w/Aurelia Last stone surgery 08/10/20 ([facility]) *No Urology [...] Contact Information ANNE MICHELLE, KEIKO Cervantes, URL [address] [address] [phone] Additional Instructions: 6 mos w/ KUB & met w/u Patient Education Dietary Guidelines to Help Prevent Kidney Stones Documentation recorded by the scribmurtaza Malave accurately reflects the services(s) I performed and decisions made by me. Authenticated by Keiko Rodríguez PA-C on 04/23/2023 09:09:42. I, Marianela Malave, personally scribed for Keiko Rodríguez PA-C on [...] amphetamine-dextroamp hetamine 20 mg Tab, See Instructions [place] Thyroid 90 mg Tab, 90 mg= 1 [...] SARS-CoV-2 (COVID-19) mRNA-1 (more content not included)... [facility] Comment on above: Result Comment: Elec tronically Signed By: KEIKO RODRÍGUEZ PA-C\.br\Date and Time Signed: 04/23/23 09:11 EST\.br\Electronically Co-Signed By: Marianela Malave\.br\Date and Time Co-Signed: 04/23/23 09:03 EST Physician Orderon 04-22-2023 Physician Order [id number] .00TIFF [facility] Lab Reportson 03-15-2023 Lab Reports [id number] .00TIFF [facility] Report[facility] 03-06-2023 Lab Reports [id number] .00TIFF [facility] Family Medicine Office/Clini c Noteon 02-27-2023 Family Medicine Office/Clinic Note HPI Staff Alicea is a 37 year old female presenting [...] pap obtained without difficulty. specimen taken to [facility] due to insurance reasons 3. Skin cancer screening (Z12.83: Encounter for screening for malignant neoplasm of skin) skin cancer screen complete. no suspicious lesion were noted on exam 4. Non-smoker (Z78.9: Other specified health status) continue not smoking Ordered: escitalopram, 5 mg = 1 tab(s), Oral, Daily, # 30 tab(s), Refills(s) 0, Pharmacy: [id number], 169, cm, 02/27/23 11:32:00 EDT, Height/Length Dosing, 109.7, kg, 02/27/23 11:32:00 EDT, Weight Dosing 5. BMI 38.0-38.9,adult (Z68.38: Body mass index [BMI] 38.0-38.9, adult) bmi education complete Ordered: escitalopram, 5 mg = 1 tab(s), Oral, Daily, # 30 tab(s), Refills(s) 0, Pharmacy: [id number], 169, cm, 02/27/23 11:32:00 EDT, Height/Length [...] 2pm, # 90 tab(s), Refills(s) 0, [id number] 169, cm, 09/28/22 11:37:00 EDT, Height/Length Dosing, 104.4, kg, 09/28/22 11:37:00 EDT, Weight Dosing amphetamine-dextroamp hetamine, See Instructions, 1 tab(s) Oral at 2pm, # 90 tab(s), Refills(s) 0, Pharmacy: [id number], 169, cm, 12/21/22 14:35:00 EDT, Height/Length Dosing, 103.7, kg, 12/21/22 14:35:00 EDT, Weight Dosing thyroid desiccated, 90 mg = 1 tab(s), Oral, Daily, if PA required please fax to [phone], # 90 tab(s), Refills(s) 0, [id number] 169, cm, 12/21/22 14:35:00 EDT (more content not included)... [facility] Comment on above: Result Comment: Elec tronically Signed By: Becca Cruz\.br\Date and Time Signed: 02/27/23 13:52 EDT Physician Orderon 02-27-2023 Physician Order [id number] .00TIFF [facility] Provider Letteron 02-15-2023 Provider Letter [address] [place] [address] February 15, 2023 STEVEN DE LA TORRE [address] [place] [id number] : 1985 To Whom It May Concern, Please the above patient had a well woman exam and skin cancer screening at my office on 05/16/2022. If you have any questions, please do not hesitate to call my office. Thank you. Sincerely, NELLY Braun [facility] XR KUB 1 VIEWon 03-14-2021 XR KUB [...] Peter MCCABE Date: 2021-03-14 04:56 Normal [facility] Pap IG, rfx Aptima HPV, rfx 16/18,45on 12-29-2020 . . Normal [facility] Comment on above: Result Comment: Perf ormed at: WB Performed By: #### P APHR2A #### [facility] [address] [place] [address] Yoana Barrera DIAGNOSIS: Comment Normal [facility] Comment on above: Result Comment: NEGA TIVE FOR INTRAEPITHELIAL LESION OR MALIGNANCY. PREDOMINANCE OF COCCOBACILLI CONSISTENT WITH SHIFT IN VAGINAL CHRIS IS PRESENT. Performed at: WB Performed By: #### P APHR2A #### [facility] [address] [address] Yoanatammy Barrera HPV Aptima Negative Normal Negative [facility] Comment on above: Result Comment: This nucleic acid amplification test detects fourteen high-risk HPV types (16,18,31,33,35,39,45,51,52,56,58,59,66,68) without differentiation. Performed at: =G Performed By: #### P APHR2A #### [facility] [address] [address] Yoana Barrera Methodology: Comment Normal [facility] Comment on above: Result Comment: This liquid based ThinPrep(R) pap test was screened with the use of an image guided system. Performed at: WB Performed By: #### P APHR2A #### [facility] [address] [place] [address] Yoana Barrera Note: Comment Normal [facility] Comment on above: Result Comment: The [...] WB Performed By: #### P APHR2A #### [facility] [address] [address] Yoana Barrera Performed by: Comment Normal [facility] Comment on above: Result Comment: Giovanna Rosado, [employer] Instrument Repairer (ASCP) Performed at: WB Performed By: #### P APHR2A #### [facility] [address] [address] Yoana Barrera Specimen adequacy: Comment Normal [facility] Comment on above: Result Comment: Sati sfactory for evaluation. Endocervical and/or squamous metaplastic cells (endocervical component) are present. Performed at: WB Performed By: #### P APHR2A #### [facility] [address] [address] Yoanatammy Barrera US PELVIS AND TRANSVAGon US PELVIS [...] by: RACHEL MEEK Date: 2020-12-28 15:31 Normal [facility] XR KUB 1 VIEWon 12-26-2020 [...] RACHEL MEEK Date: 2020-12-26 16:18 Normal [facility] CBC AUTO DIFFon 09-16-2020 BASO # 0.1 103/ul Normal 0.0-0.1 [facility] Comment on above: Performed By: #### C BC #### [facility] [address] [place] [address] Yoana Holly Basophils/100 WBC (Bld) 1.1 % Normal 0.2-2.0 [facility] Comment on above: Performed By: #### C BC #### [facility] [address] [place] [address] Yoana Holly EO # 0.2 103/ul Normal 0.0-0.7 [facility] Comment on above: Performed By: #### C BC #### [facility] [address] [place] [address] Yoana Holly Eosinophils/100 WBC (Bld) 2.4 % Normal 0.9-7.0 [facility] Comment on above: Performed By: #### C BC #### [facility] [address] [place] [address] Yoana Holly Erythrocyte distribution width (RBC) [Ratio] 14.9 % Normal 11.0-15.0 [facility] Comment on above: Performed By: #### C BC #### [facility] [address] [place] [address] Yoana Holly Hematocrit (Bld) [Volume fraction] 41.4 % Normal 36.0-48.0 [facility] Comment on above: Performed By: #### C BC #### [facility] [address] [place], [place] [id number] Yoana Holly Hemoglobin (Bld) [Mass/Vol] 12.3 g/dL Normal 12.0-16.0 [facility] Comment on above: Performed By: #### C BC #### [facility] [address] [place], [place] [id number] Yoana Holly IG # 0.02 10e3/ul Normal 0.00-0.03 [facility] Comment on above: Performed By: #### C BC #### [facility] [address] [place] [address] Yoana Holly IG % 0.3 % Normal 0.0-0.5 [facility] Comment on above: Performed By: #### C BC #### [facility] [address] [place] [address] Yoana Holly LYMPH # 1.9 103/ul Normal 1.2-3.8 [facility] Comment on above: Performed By: #### C BC #### [facility] [address] [place] [address] Yoana Barrera Lymphocytes/100 WBC (Bld) 27.3 % Normal 20.5-60.0 [facility] Comment on above: Performed By: #### C BC #### [facility] [address] [address] [place], [place] [id number] Yoana Barrera MANUAL DIFF REQ NO Normal [facility] Comment on above: Performed By: #### C BC #### [facility] [address] [place], [place] [id number] Yoana Holly MCH (RBC) [Entitic mass] 19.8 pg Critically low 26.7-34.0 [facility] Comment on above: Performed By: #### C BC #### [facility] [address] [place] [address] Yoana Holly MCHC (RBC) [Mass/Vol] 29.7 g/dL Critically low 29.9-35.2 [facility] Comment on above: Performed By: #### C BC #### [facility] [address] [place], [place] [address] Yoana Holly MCV (RBC) [Entitic vol] 66.8 fL Critically low 81.0-99.0 [facility] Comment on above: Performed By: #### C BC #### [facility] [address] [place] [id number] Yoana Holly MONO # 0.6 103/ul Normal 0.3-0.8 [facility] Comment on above: Performed By: #### C BC #### [facility] [address] [place], [place] [id number] Yoana Holly Monocytes/100 WBC (Bld) 8.6 % Normal 1.7-12.0 [facility] Comment on above: Performed By: #### C BC #### [facility] [address] [place] [address] Yoana Holly NEUT # 4.2 103/ul Normal 1.4-6.5 [facility] Comment on above: Performed By: #### C BC #### [facility] [address] [place], [place] [id number] Yoana Holly Neutrophils/100 WBC (Bld) 60.3 % Normal 43.0-75.0 [facility] Comment on above: Performed By: #### C BC #### [facility] [address] [place], [place] [id number] Yoanatammy Barrera Platelet mean volume (Bld) [Entitic vol] 9.9 fL Normal 9.5-13.5 [facility] Comment on above: Performed By: #### C BC #### [facility] [address] [place], [place] [address] Yoana Holly PLT 359 103/ul Normal 150-450 [facility] Comment on above: Performed By: #### C BC #### [facility] [address] [place], [place] [address] Yoana Holly RBC 6.20 106/ul Critically high 4.20-5.40 The [facility] Comment on above: Performed By: #### C BC #### [facility] [address] [place], [place] [address] Yoana Holly WBC 7.0 103/ul Normal 4.0-11.0 [facility] Comment on above: Performed By: #### C BC #### [facility] [address] [place], [place] [address] Yoanatammy Barrera FREE T3on 09-16-2020 FREE T3 2.57 pg/mlL Critically low 2.77-5.27 [facility] Comment on above: Performed By: #### C MP, TSH, LIPID, FT3 #### [facility] [address] [place] [address] Yoana Barrera FREE T4on 09-16-2020 Free T4 [Mass/Vol] 0.76 ng/dL Critically low 0.78-2.19 [facility] Comment on above: Performed By: #### C VDTBH #### [facility] [address] [place] [address] Yoana Barrera GLYCOHEMOGLOBIN A1Con 2020 ADA RECOMMENDATION ADA THERAPEUTIC TARGET 6.0 - 7.0 ACTION SUGGESTED > 7.0 Normal [facility] Comment on above: Performed By: #### C VDTBH #### [facility] [address] [place] [address] Yoana Barrera Glucose [Mass/Vol] 103 mg/dL Normal [facility] Comment on above: Performed By: #### C VDTBH #### [facility] [address] [place], [place] [id number] Yoana Barrera HbA1c (Bld) [Mass fraction] 5.2 % Normal <=6.0 [facility] Comment on above: Performed By: #### C VDTBH #### [facility] [address] [place] [address] Yoana Barrera LIPID PROFILEon 09-16-2020 CHOL-HDL RATIO NORM SEE BELOW Normal [facility] Comment on above: Result Comment: 3.3 - 4.4 LOW RISK 4.4 - 7.1 AVERAGE RISK 7.1 - 11.0 MODERATE RISK >11.0 HIGH RISK Performed By: #### C MP, TSH, LIPID, FT3 #### [facility] [address] [place], [place] [address] Yoana Holly Cholesterol [Mass/Vol] 154 mg/dL Normal <=200 [facility] Comment on above: Performed By: #### C MP, TSH, LIPID, FT3 #### [facility] [address] [id number] Yoana Holly Cholesterol in HDL [Mass/Vol] 60 mg/dL Normal [facility] Comment on above: Performed By: #### C MP, TSH, LIPID, FT3 #### [facility] [address] [address] Yoana Holly Cholesterol in LDL [Mass/Vol] 82.4 mg/dL Normal [facility] Comment on above: Performed By: #### C MP, TSH, LIPID, FT3 #### [facility] [address] [address] Yoana Holly Cholesterol.total/Cho lesterol in HDL [Mass ratio] 2.6 {ratio} Normal [facility] Comment on above: Performed By: #### C MP, TSH, LIPID, FT3 #### [facility] [address] [id number] Yoana Holly HDL NORMAL > or = 60 mg/dl - LO W CARDIOVASCULAR RISK <40 mg/dl - HIGH CARDIOVASCULAR RISK Normal [facility] Comment on above: Performed By: #### C MP, TSH, LIPID, FT3 #### [facility] [address] [id number] Yoana Holly LDL CALC NORMAL SEE BELOW Normal [facility] Comment on above: Result Comment: <100 mg/dl OPTIMAL 100 - 129 mg/dl NEAR OR ABOVE OPTIMAL 130 - 159 mg/dl BORDERLINE HIGH 160 - 189 mg/dl HIGH >190 mg/dl VERY HIGH Performed By: #### C MP, TSH, LIPID, FT3 #### [facility] [address] [address] Yoana Holly Triglyceride [Mass/Vol] 58 mg/dL Normal <=150 [facility] Comment on above: Performed By: #### C MP, TSH, LIPID, FT3 #### [facility] [address] [address] Yoana Holly VLDL CALC 11.6 mg/dL Normal [facility] Comment on above: Performed By: #### C MP, TSH, LIPID, FT3 #### [facility] [address] [place], [place] [address] Yoana Barrera PROF 14(COMP METB)on 021 Albumin [Mass/Vol] 4.3 g/dL Normal 3.5-5.0 [facility] Comment on above: Performed By: #### C MP, TSH, LIPID, FT3 #### [facility] [address] [place], [place] [address] Yoanatammy Barrera Albumin/Globulin [Mass ratio] 1.0 {ratio} Normal [facility] Comment on above: Performed By: #### C MP, TSH, LIPID, FT3 #### [facility] [address] [place], [place] [address] Yoaan Holly ALP [Catalytic activity/Vol] 58 U/L Normal 38-126 [facility] Comment on above: Performed By: #### C MP, TSH, LIPID, FT3 #### [facility] [address] [phone] Yoanatammy Barrera ALT [Catalytic activity/Vol] 34 U/L Normal 9-52 [facility] Comment on above: Performed By: #### C MP, TSH, LIPID, FT3 #### [facility] [address] [place], [place] [address] Yoanatammy Barrera Anion gap [Moles/Vol] 13.4 mmol/L Normal [facility] Comment on above: Performed By: #### C MP, TSH, LIPID, FT3 #### [facility] [address] [place], [place] [address] Yoana Holly AST [Catalytic activity/Vol] 13 U/L Critically low 14-36 [facility] Comment on above: Performed By: #### C MP, TSH, LIPID, FT3 #### [facility] [address] [place], [place] [address] Yoana Holly Bilirubin [Mass/Vol] 0.6 mg/dL Normal 0.2-1.3 [facility] Comment on above: Performed By: #### C MP, TSH, LIPID, FT3 #### [facility] [address] [place] [address] Yoana Holly Calcium [Mass/Vol] 9.7 mg/dL Normal 8.4-10.2 [facility] Comment on above: Performed By: #### C MP, TSH, LIPID, FT3 #### [facility] [address] [place] [address] Yoana Holly Chloride [Moles/Vol] 104 mmol/L Normal 98-107 [facility] Comment on above: Performed By: #### C MP, TSH, LIPID, FT3 #### [facility] [address] [place] [address] Yoana Holly CO2 [Moles/Vol] 26.1 mmol/L Normal 22.0-30.0 [facility] Comment on above: Performed By: #### C MP, TSH, LIPID, FT3 #### [facility] [address] [place] [address] Yoana Holly Creatinine [Mass/Vol] 0.77 mg/dL Normal 0.52-1.04 [facility] Comment on above: Performed By: #### C MP, TSH, LIPID, FT3 #### [facility] [address] [place] [address] Yoana Holly EGFR-AF BERMUDIAN >60 Normal >=60 [facility] Comment on above: Performed By: #### C MP, TSH, LIPID, FT3 #### [facility] [address] [place] [address] Yoana Holly EGFR-NON AF BERMUDIAN >60 Normal >=60 [facility] Comment on above: Performed By: #### C MP, TSH, LIPID, FT3 #### [facility] [address] [place] [address] Yoana Holly Globulin (S) [Mass/Vol] 4.1 g/dL Normal [facility] Comment on above: Performed By: #### C MP, TSH, LIPID, FT3 #### [facility] [address] [place] [address] Yoana Holly Glucose [Mass/Vol] 90 mg/dL Normal 74-106 [facility] Comment on above: Performed By: #### C MP, TSH, LIPID, FT3 #### [facility] [address] [place] [address] Yoana Holly Potassium [Moles/Vol] 3.5 mmol/L Normal 3.4-5.0 [facility] Comment on above: Performed By: #### C MP, TSH, LIPID, FT3 #### [facility] [address] [place] [address] Yoana Holly Protein [Mass/Vol] 8.4 g/dL Critically high 6.1-8.[address] [facility] Comment on above: Performed By: #### C MP, TSH, LIPID, FT3 #### [facility] [address] [place] [address] Yoana Holly Sodium [Moles/Vol] 140 mmol/L Normal 137-145 [facility] Comment on above: Performed By: #### C MP, TSH, LIPID, FT3 #### [facility] [address] [place] [address] Yoana Holly Urea nitrogen [Mass/Vol] 16.0 mg/dL Normal 7.0-17.0 [facility] Comment on above: Performed By: #### C MP, TSH, LIPID, FT3 #### [facility] [address] [place] [address] Yoana Holly Urea nitrogen/Creatinine [Mass ratio] 20.8 mg/mg Normal [facility] Comment on above: Performed By: #### C MP, TSH, LIPID, FT3 #### [facility] [address] [place] [address] Yoana Holly TSHon 09-16-2020 TSH 1.139 uIU/mL Normal 0.470-4.680 [facility] Comment on above: Performed By: #### C MP, TSH, LIPID, FT3 #### [facility] [address] [place] [address] Yoana Holly TSH RANGE SEE BELOW Normal [facility] Comment on above: Result Comment: <0.3 4 UIU/ml HYPERTHYROID 0.34-5.60 UIU/ml EUTHYROID >5.60 UIU/ml HYPOTHYROID Performed By: #### C MP, TSH, LIPID, FT3 #### [facility] [address] [phone] Yoana Holly XR KUB 1 VIEWon 2020 XR KUB [...] by: TAISHA ANAND Date: 2020 14:09 Normal [facility] XR KUB 1 VIEWon 09-09-2020 XR KUB [...] by: RACHEL MEEK Date: 2020-09-09 08:19 Normal [facility] CALCULI, URINARYon 1 2,8 Dihydroxyadenine Normal [facility] Comment on above: Performed By: #### C ALCULI #### [facility] [address] [phone] Yoanatammy Barrera Ammonium Acid Urate Normal [facility] Comment on above: Performed By: #### C ALCULI #### [facility] [address] [id number] Yoana Holly Bilirubin Ql (U) Normal [facility] Comment on above: Performed By: #### C ALCULI #### [facility] [address] [address] Yoana Holly Ca Oxalate Dihydrate Normal [facility] Comment on above: Performed By: #### C ALCULI #### [facility] [address] [address] Yoana Holly CaHPO4 (Brushite) 10 % Normal [facility] Comment on above: Performed By: #### C ALCULI #### [facility] [address] [address] Yoana Holly Calcium Bilirubinate Normal [facility] Comment on above: Performed By: #### C ALCULI #### [facility] [address] [address] Yoana Holly Calcium Carbonate Normal [facility] Comment on above: Performed By: #### C ALCULI #### [facility] [address] [address] Yoana Holly Calcium Oxalate Monohydrate Normal [facility] Comment on above: Performed By: #### C ALCULI #### [facility] [address] [address] Yoana Holly Calcium Palmitate Normal [facility] Comment on above: Performed By: #### C ALCULI #### [facility] [address] [place] [address] Yoana Holly Calcium Phosphate Normal [facility] Comment on above: Performed By: #### C ALCULI #### [facility] [address] [address] Yoana Holly Calcium Stearate Normal [facility] Comment on above: Performed By: #### C ALCULI #### [facility] [address] [address] Yoana Holly Carbonate Apatite Normal [facility] Comment on above: Performed By: #### C ALCULI #### [facility] [address] [address] Yoana Holly Cellular Material Normal [facility] Comment on above: Performed By: #### C ALCULI #### [facility] [address] [address] Yoana Holly Cholesterol Normal [facility] Comment on above: Performed By: #### C ALCULI #### [facility] [address] [address] Yoana Holly Color (U) [place] Normal [facility] Comment on above: Performed By: #### C ALCULI #### [facility] [address] [place] [address] Yoana Holly Comment Comment Normal [facility] Comment on above: Result Comment: The possibility of struvite as a minor component of the calculi cannot be excluded. There is insufficient material for further analysis. Performed By: #### C ALCULI #### [facility] [address] [place] [address] Holly Comment Normal [facility] Comment on above: Performed By: #### C ALCULI #### [facility] [address] [place] [address] Yoana Holly Comment: Comment Normal [facility] Comment on above: Result Comment: Marce borges questions regarding Calculi Analysis contact [facility] at: [phone]. Performed By: #### C ALCULI #### [facility] [address] [place] [address] Holly Composition Comment [facility] Comment on above: Result Comment: Perc entage (Represents the % composition) Performed By: #### C ALCULI #### [facility] [address] [place] [address] Holly Cystine [facility] Comment on above: Performed By: #### C ALCULI #### [facility] [address] [place] [address] Yoana Holly Disclaimer: Comment [facility] Comment on above: Result Comment: This test was developed and its performance characteristics determined by [facility]. It has not been cleared or approved by the Food and Drug Administration. Performed By: #### C ALCULI #### [facility] [address] [place] [address] Yoana Holly Dried Blood [facility] Comment on above: Performed By: #### C ALCULI #### [facility] [address] [address] Yoana Holly Drug or Metabolite Normal [facility] Comment on above: Performed By: #### C ALCULI #### [facility] [address] [address] Yoana Holly Hydroxyapatite 90 % Normal [facility] Comment on above: Performed By: #### C ALCULI #### [facility] [address] [address] Yoana Holly Mg NH4 PO4 (Struvite) Normal [facility] Comment on above: Performed By: #### C ALCCHACHA #### [facility] [address] Holly MgHPO4 (Newberyite) Normal [facility] Comment on above: Performed By: #### C ALCCHACHA #### [facility] [address] [place] [address] Yoana Holly Other component(s) Normal [facility] Comment on above: Performed By: #### C ALCCHACHA #### [facility] [address] [place] [address] Yoana Holly PDF . Normal [facility] Comment on above: Performed By: #### C ALCCHACHA #### [facility] [address] [address] Yoana Holly Photo Comment Normal [facility] Comment on above: Result Comment: Phot ograph will follow under a separate cover Performed By: #### C ALCCHACHA #### [facility] [address] [address] Yoana Holly Please note: Comment Normal [facility] Comment on above: Result Comment: Calc chacha report will follow via computer, mail or full fashioned garment knitter delivery. Performed By: #### C ALCULI #### [facility] [address] [address] Yoana Holly Size 2x2 Normal [facility] Comment on above: Result Comment: Mult iple pieces received. Dimensions of the largest piece reported. Performed By: #### C ALCULI #### [facility] [address] [id number] Yoana Holly Sodium Acid Urate Normal [facility] Comment on above: Performed By: #### C ALCULI #### [facility] [address] [id number] Oyana Holly Source Comment Normal [facility] Comment on above: Result Comment: Not provided Performed By: #### C ALCULI #### [facility] [address] [address] Yoana Holly Triamterene Normal [facility] Comment on above: Performed By: #### C ALCULI #### [facility] [address] [address] Yoana Holly Uric Acid Normal [facility] Comment on above: Performed By: #### C ALCULI #### [facility] [address] [address] Yoana Holly Uric Acid Dihydrate Normal [facility] Comment on above: Performed By: #### C ALCULI #### [facility] [address] [address] Yoana Holly Weight 5 mg Normal [facility] Comment on above: Performed By: #### C ALCULI #### [facility] [address] [id number] Yoana Holly Xanthine Normal [facility] Comment on above: Performed By: #### C ALCULI #### [facility] [address] [id number] Yoana Holly PREG HCG QUALon 08-10-2020 , QUAL Negative Normal NEGATIVE [facility] Comment on above: Performed By: #### C VDTBH #### [facility] [address] [id number] Yoana Holly XR KUB 1 VIEWon 08-10-2020 XR [...] TAISHA ANAND Date: 2020-08-10 09:00 Normal [facility] CULTURE URINEon 08-08-2020 CULTURE URINE Isolate 1 [...] F Nitrofurantoin <=16 S F Normal [facility] Comment on above: Performed By: #### C VDTBH #### [facility] [address] [place] [address] Yoana Holly UA RANDOM W/MICROSCOPICon BACTERIA SMALL Abnormal NONE SEEN [facility] Comment on above: Performed By: #### U AMIC #### [facility] [address] [place] [address] Yoana Barrera Bilirubin Ql (U) Negative Normal NEGATIVE [facility] Comment on above: Performed By: #### U AMIC #### [facility] [address] [place], [place] [id number] Yoana Holly CAST NONE SEEN Normal NONE SEEN [facility] Comment on above: Performed By: #### U AMIC #### [facility] [address] [address] Yoana Holly Clarity (U) CLEAR Normal CLEAR [facility] Comment on above: Performed By: #### U AMIC #### [facility] [address] [address] Yoana Holly Color (U) LT. YELLOW Normal YELLOW [facility] Comment on above: Performed By: #### U AMIC #### [facility] [address] [address] Yoana Holly Crystals LM Nom (Urine sed) NONE SEEN Normal NONE SEEN [facility] Comment on above: Performed By: #### U AMIC #### [facility] [address] [place] [address] Yoana Holly Epithelial cells LM Ql (Urine sed) FEW Abnormal NONE SEEN /RARE [facility] Comment on above: Performed By: #### U AMIC #### [facility] [address] [place] [address] Yoana Holly Glucose Ql (U) Negative Normal NEGATIVE [facility] Comment on above: Performed By: #### U AMIC #### [facility] [address] [place] [address] Yoana Holly Hemoglobin Ql (U) LARGE Abnormal NEGATIVE [facility] Comment on above: Performed By: #### U AMIC #### [facility] [address] [address] Yoana Holly Ketones Ql (U) TRACE Abnormal NEGATIVE [facility] Comment on above: Performed By: #### U AMIC #### [facility] [address] [address] Yoana Holly LEUKOCYTES TRACE Abnormal NEGATIVE [facility] Comment on above: Performed By: #### U AMIC #### [facility] [address] [place] [address] Yoana Holly MUCOUS SMALL Abnormal NONE SEEN [facility] Comment on above: Performed By: #### U AMIC #### [facility] [address] [place], [place] [address] Yoanatammy Barrera Nitrite Ql (U) Negative Normal NEGATIVE [facility] Comment on above: Performed By: #### U AMIC #### [facility] [address] [place] [address] Yoana Barrera pH (U) 8.0 [pH] Normal 5-9 [facility] Comment on above: Performed By: #### U AMIC #### [facility] [address] [place], [place] [address] Yoana Holly RBC 10-20 Abnormal 0-2 [facility] Comment on above: Performed By: #### U AMIC #### [facility] [address] [place], [place] [address] Yoana Barrera SPEC GRAVITY 1.015 Normal 1.005-<=1.025 [facility] Comment on above: Performed By: #### U AMIC #### [facility] [address] [place], [place] [address] Yoana Barrera UA PROTEIN 100 mg/dl Abnormal NEGATIVE/ TRACE [facility] Comment on above: Performed By: #### U AMIC #### [facility] [address] [place], [place] [id number] Yoana Barrera Urobilinogen Qn (U) 1.0 {Koffi'U}/dL Normal 0.2 - 1. 0 [facility] Comment on above: Performed By: #### U AMIC #### [facility] [address] [place], [place] [address] Yoana Barrera WBC 5-10 Abnormal NONE SEEN [facility] Comment on above: Performed By: #### U AMIC #### [facility] [address] [place], [place] [id number] Yoana Barrera Covid-19 PCR ([facility])on 07-18 SARS-CoV-2 (COVID-19) RNA CARLITA+probe Ql (Unsp spec) Not detected Normal NOT DETECTED [facility] Comment on above: Result Comment: This test is not yet approved or cleared by the [place] FDA. When there are no FDA-approved or cleared tests available, and other criteria are met, FDA can make tests available under an emergency access mechanism called an Emergency Use Authorization (EUA). The EUA for this test is supported by the [place] of Health and Human Service's (HHS's) declaration [...] consistent with SARS-CoV-2. Performed By: #### [facility] #### [facility] [address] [place] [address] Yoana Holly CBC AUTO DIFFon 07-14-2020 BASO # 0.1 103/ul Normal 0.0-0.1 [facility] Comment on above: Performed By: #### C BC #### [facility] [address] [place], [place] [id number] Yoana Holly Basophils/100 WBC (Bld) 1.2 % Normal 0.2-2.0 [facility] Comment on above: Performed By: #### C BC #### [facility] [address] [place], [place] [address] Yoana Holly EO # 0.1 103/ul Normal 0.0-0.7 [facility] Comment on above: Performed By: #### C BC #### [facility] [address] [place], [place] [id number] Yoana Holly Eosinophils/100 WBC (Bld) 1.5 % Normal 0.9-7.0 [facility] Comment on above: Performed By: #### C BC #### [facility] [address] [place], [place] [id number] Yoana Holly Erythrocyte distribution width (RBC) [Ratio] 14.8 % Normal 11.0-15.0 [facility] Comment on above: Performed By: #### C BC #### [facility] [address] [place], [place] [id number] Yoanatammy Barrera Hematocrit (Bld) [Volume fraction] 39.8 % Normal 36.0-48.0 [facility] Comment on above: Performed By: #### C BC #### [facility] [address] [place], [place] [id number] Yoana Holly Hemoglobin (Bld) [Mass/Vol] 11.8 g/dL Critically low 12.0-16.0 [facility] Comment on above: Performed By: #### C BC #### [facility] [address] [place] [address] Yoana Holly IG # 0.02 10e3/ul Normal 0.00-0.03 [facility] Comment on above: Performed By: #### C BC #### [facility] [address] [place] [address] Yoana Holly IG % 0.3 % Normal 0.0-0.5 [facility] Comment on above: Performed By: #### C BC #### [facility] [address] [place] [address] Yoana Holly LYMPH # 1.4 103/ul Normal 1.2-3.8 [facility] Comment on above: Performed By: #### C BC #### [facility] [address] [place], [place] [address] Yoana Barrera Lymphocytes/100 WBC (Bld) 24.1 % Normal 20.5-60.0 [facility] Comment on above: Performed By: #### C BC #### [facility] [address] [place] [address] Yoana Barrera MANUAL DIFF REQ NO Normal [facility] Comment on above: Performed By: #### C BC #### [facility] [address] [place], [place] [address] Yoanatammy Barrera MCH (RBC) [Entitic mass] 19.8 pg Critically low 26.7-34.0 [facility] Comment on above: Performed By: #### C BC #### [facility] [address] [place], [place] [address] Yoanatammy Landaen MCHC (RBC) [Mass/Vol] 29.6 g/dL Critically low 29.9-35.2 [facility] Comment on above: Performed By: #### C BC #### [facility] [address] [place], [place] [address] Yoana Barrera MCV (RBC) [Entitic vol] 66.9 fL Critically low 81.0-99.0 [facility] Comment on above: Performed By: #### C BC #### [facility] [address] [place], [place] [address] Yoanatamym Landaen MONO # 0.4 103/ul Normal 0.3-0.8 [facility] Comment on above: Performed By: #### C BC #### [facility] [address] [place] [address] Yoana Barrera Monocytes/100 WBC (Bld) 7.4 % Normal 1.7-12.0 [facility] Comment on above: Performed By: #### C BC #### [facility] [address] [place] [address] Yoanatammy Landaen NEUT # 3.8 103/ul Normal 1.4-6.5 [facility] Comment on above: Performed By: #### C BC #### [facility] [address] [place], [place] [address] Yoana Barrera Neutrophils/100 WBC (Bld) 65.5 % Normal 43.0-75.0 [facility] Comment on above: Performed By: #### C BC #### [facility] [address] [place], [place] [address] Yoanatammy Barrera Platelet mean volume (Bld) [Entitic vol] 10.5 fL Normal 9.5-13.5 [facility] Comment on above: Performed By: #### C BC #### [facility] [address] [place], [place] [address] Yoana Holly PLT 371 103/ul Normal 150-450 [facility] Comment on above: Performed By: #### C BC #### [facility] [address] [place], [place] [address] Yoana Holly RBC 5.95 106/ul Critically high 4.20-5.40 [facility] Comment on above: Performed By: #### C BC #### [facility] [address] [place], [place] [address] Yoanatammy Barrera WBC 5.8 103/ul Normal 4.0-11.0 [facility] Comment on above: Performed By: #### C BC #### [facility] [address] [place], [place] [address] ABD/PELVIS WO CONon 07-14 [...] of a noncontrast exam. Electronically authenticated by: ALLAN EATON Date: 2020-07-14 09:49 Normal [facility] ER URINE PROFILEon Bilirubin Ql (U) Negative Normal NEGATIVE [facility] Comment on above: Performed By: #### C VDTBH #### [facility] [address] [place], [place] [address] Yoana Barrera Clarity (U) CLEAR Normal CLEAR [facility] Comment on above: Performed By: #### C VDTBH #### [facility] [address] [place] [address] Yoana Holly Color (U) LT. YELLOW Normal YELLOW [facility] Comment on above: Performed By: #### C VDTBH #### [facility] [address] [place] [address] Yoanatammy Barrera ERUAHD A micrscopic examination will be performed if indicated. Normal [facility] Comment on above: Performed By: #### C VDTBH #### [facility] [address] [place] [address] Yoana Holly Glucose Ql (U) Negative Normal NEGATIVE The [facility] Comment on above: Performed By: #### C VDTBH #### [facility] [address] [place] [address] Yoana Holly Hemoglobin Ql (U) MODERATE Abnormal NEGATIVE The [facility] Comment on above: Performed By: #### C VDTB #### [facility] [address] [place] [address] Yoana Holly Ketones Ql (U) Negative Normal NEGATIVE [facility] Comment on above: Performed By: #### C VDTB #### [facility] [address] [place] [address] Yoana Holly LEUKOCYTES Negative Normal NEGATIVE [facility] Comment on above: Performed By: #### C VDTBH #### [facility] [address] [place] [address] Yoana Holly Nitrite Ql (U) Negative Normal NEGATIVE [facility] Comment on above: Performed By: #### C VDTBH #### [facility] [address] [place] [address] Yoana Holly pH (U) 8.5 [pH] Normal 5-9 [facility] Comment on above: Performed By: #### C VDTBH #### [facility] [address] [place] [address] Yoana Holly SPEC GRAVITY 1.015 Normal 1.005-<=1.025 [facility] Comment on above: Performed By: #### C VDTBH #### [facility] [address] [place] [address] Yoana Holly UA PROTEIN TRACE Normal NEGATIVE/ TRACE [facility] Comment on above: Performed By: #### C VDTBH #### [facility] [address] [place] [address] Yoana Barrera UR MICRO IND INDICATED Normal [facility] Comment on above: Performed By: #### C VDTBH #### [facility] [address] [place] [address] Yoana Barrera Urobilinogen Qn (U) 0.2 {Koffi'U}/dL Normal 0.2 - 1. 0 [facility] Comment on above: Performed By: #### C VDTB #### [facility] [address] [place], [place] [address] Yoana Barrera PREG HCG QUALon 07-14-2020 , QUAL Negative Normal NEGATIVE [facility] Comment on above: Performed By: #### C VDTB #### [facility] [address] [place], [place] [address] Yoana Barrera PROF 14(COMP METB)on 021 Albumin [Mass/Vol] 4.2 g/dL Normal 3.5-5.0 [facility] Comment on above: Performed By: #### C MP #### [facility] [address] [place], [place] [address] Yoana Barrera Albumin/Globulin [Mass ratio] 1.2 {ratio} Normal [facility] Comment on above: Performed By: #### C MP #### [facility] [address] [place], [place] [address] Yoana Barrera ALP [Catalytic activity/Vol] 61 U/L Normal 38-126 [facility] Comment on above: Performed By: #### C MP #### [facility] [address] [place], [place] [address] Yoana Barrera ALT [Catalytic activity/Vol] 26 U/L Normal 9-52 [facility] Comment on above: Performed By: #### C MP #### [facility] [address] [place], [place] [address] Yoana Barrera Anion gap [Moles/Vol] 16.8 mmol/L Normal [facility] Comment on above: Performed By: #### C MP #### [facility] [address] [address] Yoana Holly AST [Catalytic activity/Vol] 12 U/L Critically low 14-36 [facility] Comment on above: Performed By: #### C MP #### [facility] [address] [address] Yoana Holly Bilirubin [Mass/Vol] 0.8 mg/dL Normal 0.2-1.3 [facility] Comment on above: Performed By: #### C MP #### [facility] [address] [address] Yoana Holly Calcium [Mass/Vol] 9.5 mg/dL Normal 8.4-10.2 [facility] Comment on above: Performed By: #### C MP #### [facility] [address] [address] Yoana Holly Chloride [Moles/Vol] 105 mmol/L Normal 98-107 [facility] Comment on above: Performed By: #### C MP #### [facility] [address] [address] Yoana Holly CO2 [Moles/Vol] 25.7 mmol/L Normal 22.0-30.0 [facility] Comment on above: Performed By: #### C MP #### [facility] [address] [address] Yoana Holly Creatinine [Mass/Vol] 0.80 mg/dL Normal 0.52-1.04 [facility] Comment on above: Performed By: #### C MP #### [facility] [address] [address] Yoana Holly EGFR-AF BERMUDIAN >60 Normal >=60 [facility] Comment on above: Performed By: #### C MP #### [facility] [address] [address] Yoana Holly EGFR-NON AF BERMUDIAN >60 Normal >=60 [facility] Comment on above: Performed By: #### C MP #### [facility] [address] [place], [place] [address] Yoana Holly Globulin (S) [Mass/Vol] 3.4 g/dL Normal [facility] Comment on above: Performed By: #### C MP #### [facility] [address] [id number] Yoana Holly Glucose [Mass/Vol] 107 mg/dL Critically high 74-106 [facility] Comment on above: Performed By: #### C MP #### [facility] [address] [address] Yoana Holly Potassium [Moles/Vol] 3.5 mmol/L Normal 3.4-5.0 [facility] Comment on above: Performed By: #### C MP #### [facility] [address] [address] Yoana Holly Protein [Mass/Vol] 7.6 g/dL Normal 6.1-8.2 [facility] Comment on above: Performed By: #### C MP #### [facility] [address] [address] Yoana Holly Sodium [Moles/Vol] 144 mmol/L Normal 137-145 [facility] Comment on above: Performed By: #### C MP #### [facility] [address] [id number] Yoana Holly Urea nitrogen [Mass/Vol] 16.0 mg/dL Normal 7.0-17.0 [facility] Comment on above: Performed By: #### C MP #### [facility] [address] [id number] Yoana Holly Urea nitrogen/Creatinine [Mass ratio] 20.0 mg/mg Normal [facility] Comment on above: Performed By: #### C MP #### [facility] [address] [id number] Yoana Holly RESPIRATORY PANEL PLUSon Adenovirus Not detected Normal NOT DETECTED [facility] Comment on above: Performed By: #### C BC #### [facility] [address] [id number] Yoana Holly B. Parapertusis Not detected Normal NOT DETECTED [facility] Comment on above: Performed By: #### C BC #### [facility] [address] [place] [address] Yoana Holly B. Pertussis Not detected Normal NOT DETECTED [facility] Comment on above: Performed By: #### C BC #### [facility] [address] [place] [address] Yoana Holly Chlamydia Pneumoniae Not detected Normal NOT DETECTED [facility] Comment on above: Performed By: #### C BC #### [facility] [address] [place] [address] Yoana Holly Coronavirus 229E Not detected Normal NOT DETECTED [facility] Comment on above: Performed By: #### C BC #### [facility] [address] [place] [address] Yoana Holly Coronavirus HKU1 Not detected Normal NOT DETECTED [facility] Comment on above: Performed By: #### C BC #### [facility] [address] [place] [address] Yoana Holly Coronavirus NL63 Not detected Normal NOT DETECTED [facility] Comment on above: Performed By: #### C BC #### [facility] [address] [place] [address] Yaona Holly Coronavirus OC43 Not detected Normal NOT DETECTED [facility] Comment on above: Performed By: #### C BC #### [facility] [address] [place] [address] Yoana Holly Influenza A H1 2008 Not detected Normal NOT DETECTED [facility] Comment on above: Performed By: #### C BC #### [facility] [address] [place] [address] Yoana Holly Influenza B Not detected Normal NOT DETECTED [facility] Comment on above: Performed By: #### C BC #### [facility] [address] [place] [address] Yoana Holly Metapneumovirus Not detected Normal NOT DETECTED [facility] Comment on above: Performed By: #### C BC #### [facility] [address] [place], [place] [address] Yoana Holly Mycoplas. Pneumoniae Not detected Normal NOT DETECTED [facility] Comment on above: Performed By: #### C BC #### [facility] [address] [place] [address] Yoana Holly Parainfluenza 1 Not detected Normal NOT DETECTED [facility] Comment on above: Performed By: #### C BC #### [facility] [address] [place] [address] Yoana Holly Parainfluenza 2 Not detected Normal NOT DETECTED [facility] Comment on above: Performed By: #### C BC #### [facility] [address] [place] [address] Yoana Holly Parainfluenza 3 Not detected Normal NOT DETECTED [facility] Comment on above: Performed By: #### C BC #### [facility] [address] [place] [address] Yoana Holly Parainfluenza 4 Not detected Normal NOT DETECTED [facility] Comment on above: Performed By: #### C BC #### [facility] [address] [place] [address] Yoana Holly Rhino/Enterovirus Not detected Normal NOT DETECTED [facility] Comment on above: Performed By: #### C BC #### [facility] [address] [place] [address] Yoana Holly RP2 Header 1 RESPIRATORY PANEL: VIRUSES Normal [facility] Comment on above: Performed By: #### C BC #### [facility] [address] [place] [address] Yoana Holly RP2 Header 2 RESPIRATORY PANEL: BACTERIA Normal [facility] Comment on above: Performed By: #### C BC #### [facility] [address] [place] [address] Yoana Holly RP2 Header 4 EUA SEE BELOW Normal [facility] Comment on above: Result Comment: This test is not yet approved or cleared by the [place] FDA. When there are no FDA-approved or cleared tests available, and other criteria are met, FDA can make tests available under an emergency access mechanism called an Emergency Use Authorization (EUA). The EUA for this test is supported by the [place] of Health and Human Service?s (HHS?s) declaration [...] used). Performed By: #### C BC #### [facility] [address] [place] [address] Yoana Barrera RSV Not detected Normal NOT DETECTED [facility] Comment on above: Performed By: #### C BC #### [facility] [address] [place] [address] Yoana Barrera SARS-CoV-2 (COVID-19) RNA CARLITA+probe Ql (Unsp spec) Not detected Normal NOT DETECTED [facility] Comment on above: Performed By: #### C BC #### [facility] [address] [place] [address] Yoanatammy Barrera URINE MICROSCOPIC ONLYon AMORPHOUS CRYSTALS MANY Normal [facility] Comment on above: Performed By: #### C VDTBH #### [facility] [address] [place] [address] Yoana Holly BACTERIA NONE SEEN Normal NONE SEEN [facility] Comment on above: Performed By: #### C VDTBH #### [facility] [address] [place] [address] Yoanatammy Barrera Bacteria identified Cx Nom (U) NOT INDICATED Normal [facility] Comment on above: Performed By: #### C VDTBH #### [facility] [address] [place] [address] Yoana Holly CAST NONE SEEN Normal NONE SEEN [facility] Comment on above: Performed By: #### C VDTBH #### [facility] [address] [place] [address] Yoana Holly Crystals LM Nom (Urine sed) SEEN Abnormal NONE SEEN [facility] Comment on above: Performed By: #### C VDTBH #### [facility] [address] [place], [place] [address] Yoana Holly Epithelial cells LM Ql (Urine sed) FEW Abnormal NONE SEEN /RARE [facility] Comment on above: Performed By: #### C VDTBH #### [facility] [address] [place], [place] [address] Yoana Holly MUCOUS NONE SEEN Normal NONE SEEN [facility] Comment on above: Performed By: #### C VDTBH #### [facility] [address] [id number] Yoana Holly RBC 10-20 Abnormal 0-2 [facility] Comment on above: Performed By: #### C VDTBH #### [facility] [address] [id number] Yoana Holly WBC NONE SEEN Normal NONE SEEN [facility] Comment on above: Performed By: #### C VDTBH #### [facility] [address] [id number] Yoana Holly Encounters Encounter Date Encounter Type Care Provider Facility Start: 03-23-2024 ambulatory Becca L Annmarie Facility: [facility] Start: 02-10-2024 End: 02-10-2024 ambulatory Becca L Annmarie Facility:[facility] Start: 01-06-2024 End: 01-06-2024 ambulatory AURORA TURNER Not Available Start: 11-12-2023 End: 11-12-2023 ambulatory OMKAR-Bessie RODRÍGUEZ Facility:[facility] Start: 11-12-2023 End: 11-12-2023 Patient encounter procedure KEIKO RODRÍGUEZ [facility] Start: 06-21-2023 Refill Teodoro rice MD Work Phone: [facility] Comment on above: Flexural atopic derm atitis Start: 04-23-2023 End: 04-23-2023 ambulatory VIVIANA RODRÍGUEZ Facility:[facility] Start: 04-23-2023 End: 04-23-2023 Patient encounter procedure KEIKO RODRÍGUEZ [facility] Start: 02-27-2023 End: 02-27-2023 ambulatory Becca Anguiano Facility:[facility] Start: 03-13-2021 End: 03-14-[address] [...] preprocedural laboratory examination DR LISBET KAYE JR [facility] Start: 08-10-2020 End: 08-10-[address] LISBET [...] shock wave lithotripsy of calculus of kidney KEIKO RODRÍGUEZ Start: 07-15-2020 Retrograde pyelogram JE NNIFER ANNE Start: 04-22-2019 Laparoscopic cholecystectomy KEIKO RODRÍGUEZ Start: 08-12-2018 Acute tear of menisc us of left knee (disorder) KEIKO RODRÍGUEZ Start: 11-15-2017 Rupture of anterior cruciate ligament (disorder) KEIKO RODRÍGUEZ section KEIKO RAMOS Comment on above: x2 Plan of Treatment Date Care Activity Detail Author Start: 01-18-2023 Influenza vaccination Influenza Vacc ine (#1) [facility] Start: 09-13-2015 Screening for malign ant neoplasm of cervix [facility] Start: 2006 Screening for malign ant neoplasm of cervix Pap Smear [facility] Immunizations Immunization Date Immunization Notes Care Provider Fa cility 07-07-2021 SARS-CoV-2 (COVID-19 ) mRNA-1273 vaccine KEIKO RODRÍGUEZ [facility] 01-13-2021 SARS-CoV-2 (COVID-19 ) mRNA-1273 vaccine KEIKO RODRÍGUEZ [facility] 01-13-2021 tetanus toxoid, redu terese diphtheria toxoid, and acellular pertussis vaccine, adsorbed KEIKO RODRÍGUEZ [facility] 12-16-2020 SARS-CoV-2 (COVID-19 ) mRNA-1273 vaccine KEIKO RODRÍGUEZ [facility] 03-03-2020 influenza virus vaccine, unspecified formulation KEIKO RODRÍGUEZ [facility] 01-19-2020 influenza virus vaccine, unspecified formulation KEIKO RODRÍGUEZ [facility] 01-18-2017 influenza virus vaccine, unspecified formulation KEIKO RODRÍGUEZ [facility] Payers Date Payer Category Payer Unknown BCBS BCBS [id number] [id number] 2022-Present [phone] [address] [place] [address] [id number] 2022 Unknown [id number] 1985 Unknown [id number] 2.16.840.1.875782.3.579.2 .593 1985 Unknown [id number] 2.16.840.1.491060.3.579.2 .593 1985 Unknown [id number] 2.16.840.1.586899.3.579.2 .593 1985 Unknown [id number] 2.16.840.1.237472.3.579.2 .593 1985 Unknown [id number] 2.16.840.1.482570.3.579.2 .593 1985 Unknown [id number] 2.16.840.1.669006.3.579.2 .593 1985 Unknown [id number] 2.16.840.1.781163.3.579.2 .593 1985 Unknown [id number] 2.16.840.1.444088.3.579.2 .593 1985 Unknown [id number] 2.16.840.1.946544.3.579.2 .593 1985 Unknown [id number] 2.16.840.1.321360.3.579.2 .593 1985 Unknown [id number] 2.16.840.1.495292.3.579.2 .593 1985 Unknown [id number] 2.16.840.1.033129.3.579.2 .593 1985 Unknown [id number] 2.16.840.1.676075.3.579.2 .593 1985 Unknown [id number] 2.16.840.1.575661.3.579.2 .1259 1985 Unknown [id number] 2.16.840.1.772217.3.579.2 .727 1985 Unknown [id number] 2.16.840.1.210143.3.579.2 .727 1985 Unknown [id number] 2.16.840.1.585891.3.579.2 .727 1985 Unknown [id number] 2.16.840.1.946374.3.579.2 .727 1985 Unknown [id number] 2.16.840.1.698584.3.579.2 .727 1959 Private Health Insurance [id number] 1959 Private Health Insurance [id number] Social History Date Type Detail Facility Start: 12-28-2022 End: 04-23-2023 Tobacco smoking status Never smoked tobacco (finding) [facility] Tobacco smoking status Never [facility] Start: 02-18-2023 Sex Assigned At Female F [facility] Start: 12-28-2022 Tobacco use and exposure Smokeless [...] 04-23-2023 Functional Status N/A [facility] Hospital Discharge instructions 04-23-2023 Note Date & [...] include: ?8 oz (237 mL) of milk, pazaias-fmhjjfmvlozy-rqpta milk, and calcium-fortifiedfruit juice. Calcium-fortified means that [...] ?Spinach (cooked), rhubarb, beets, sweet potatoes, and Ugandan chard. ?Peanuts. ?Potato chips, macedonian fries, and baked potatoes with skin on. ?Nuts and nut products. ?Chocolate. If you regularly take a diuretic medicine, make sure to eat at least 1 or 2 servings of fruits or vegetables that are high in potassium each day. These include: ?Avocado. ?Banana. ?[place], prune, carrot, or tomato juice. ?Baked potato. [...] magnesium, fish oil, or vitamin B6. Take opsu-iut-tpfptty and prescription medicines only as told by [...] Casseroles. Pizza. Lasagna. Frozen meals. Potato chips. Puerto Rican fries. The items listed above may not [...] provider. Document Revised: 08/16/2022 Document Reviewed: 08/16/2022 [employer] Patient Education 2022 [employer] Follow Up Care 03/11/2023 10:57:48 With:KEIKO RODRÍGUEZ PA-C, URL Address: [place] [id number] When: Unknown Comments:6 mos w/ KUB & met w/u [facility] Evaluation + Plan note Note Date & Type Note Facility Evaluation + Plan note Future Appointments Appointment Date:11/12/2023 08:30:00 AM Scheduled Provider:KEIKO RODRÍGUEZ PA-C Location:[facility] Appointment Type:URO Office Visit [facility] Evaluation note Note Date & Type Note Facility Evaluation note Diagnosis Flexural atopic dermatitis Other atopic dermatitis and related conditions documented in this encounter [facility] Hospital course Narrative Note Date & Type Note Facility Hospital course Narrative No data available for this section [facility] Hospital Discharge instructions Note Date & Type Note Facility Hospital Discharge instructions No data available for this section [facility] Progress note Note Date & Type Note Facility Progress note No data available for this section [facility] Summary Purpose Family History No Family History Records Found No data available for this section No data available for this section No Family History Records FoundNo Family History Records Found Advance Directives No Advanced Directives Records FoundNo Advanced Directives Records FoundNo Advanced Directives Records Found Additional Source Comments INFORMATION SOURCE (unrecogn ized section and content) DATE CREATED AUTHOR 03/18/2021 [facility] pital DATE CREATED AUTHOR AUTHOR'S ORGANIZ ATION 01/07/2024 [facility] EPIC DATE CREATED AUTHOR AUTHOR'S CALE ATDRU 02/11/2024 Alford Lyon [facility] Patient Care team informatio n (unrecognized section and content) Personnel Name: Becca Cruz Address: Address: [address] [place] [address]- Personnel Name: Becca Cruz Address: Address: [address] [place] [address]- Reason for Visit (unrecogniz ed section and [...] BE BASED ON THE PRIMARY CLINICAL RECORDS. [employer] provides no warranty or guarantee of the accuracy or completeness of information in this document.
[2024-03-19 08:09] LABS: Basophils Absolute Auto 0.1 10^3/uL (0.0-0.1); Basophils Percent Auto 0.7 % (0.2-2.0); Eosinophils Absolute Auto 0.1 10^3/uL (0.0-0.7); Eosinophils Percent Auto 1.2 % (0.9-7.0); Hematocrit 39.6 % (36.0-48.0); Hemoglobin 11.7 g/dL (12.0-16.0); Immature Granulocytes Abs Auto 0.05 10^3/uL (0.00-0.03); Immature Granulocytes Pct Auto 0.5 % (0.0-0.5); Lymphocytes Absolute Auto 1.1 10^3/uL (1.2-3.8); Lymphocytes Percent Auto 10.3 % (20.5-60.0); Mean Corpuscular HGB Conc 29.5 g/dL (29.9-35.2); Mean Corpuscular Hemoglobin 19.6 pg (26.7-34.0); Mean Corpuscular Volume 66.4 fL (81.0-99.0); Mean Platelet Volume 9.2 fL (9.5-13.5); Monocytes Absolute Auto 0.7 10^3/uL (0.3-0.8); Monocytes Percent Auto 6.3 % (1.7-12.0); Neutrophils Absolute Auto 8.7 10^3/uL (1.4-6.5); Platelet Count 426 10^3/uL (150-450); Red Blood Count 5.96 10^6/uL (4.20-5.40); Red Cell Distribution Width 14.4 % (11.0-15.0); White Blood Count 10.7 10^3/uL (4.0-11.0)
[2024-03-19 08:49] LABS: Thyroid Stimulating Hormone 1.479 uIU/mL (0.358-3.740)
== END 2024-03-19 07:29 | disposition home or self-care (01) ==
LOC: LAB 07:32
PROVIDERS: PCP Nurse Practitioner; Visit Provider Nurse Practitioner
DX: D64.9 Anemia, unspecified (principal); E03.9 Hypothyroidism, unspecified
CPT/HCPCS: 36415; 84443; 85025

== ENCOUNTER 2024-04-02 15:37 | Outpatient (REF) | payer BC, SELFPAY | END 2024-04-02 15:38 | disposition home or self-care (01) | LOC: LAB 15:37 | PROVIDERS: PCP Nurse Practitioner; Visit Provider Nurse Practitioner | DX: Z01.419 Encounter for gynecological examination (general) (routine) without abnormal findings (principal) | CPT/HCPCS: 87624; 88175 ==

== ENCOUNTER 2024-08-27 14:52 | Outpatient (REF) | payer BC, SELFPAY ==
[2024-08-27 15:26] LABS: Cannabinoid Screen Urine NEGATIVE (NEGATIVE); Cocaine Screen Urine NEGATIVE (NEGATIVE); Methamphetamines Screen Urine NEGATIVE (NEGATIVE); Opiate Screen Urine NEGATIVE (NEGATIVE); Phencyclidine Screen Urine NEGATIVE (NEGATIVE)
[2024-08-27 15:27] LABS: Amphetamine Screen Urine POSITIVE (NEGATIVE); Barbiturates Screen Urine NEGATIVE (NEGATIVE); Benzodiazepines Screen Urine NEGATIVE (NEGATIVE); Buprenorphine Screen Urine NEGATIVE (NEGATIVE); Methadone Screen Urine NEGATIVE (NEGATIVE); Oxycodone Screen Urine NEGATIVE (NEGATIVE); Tricyclic Antidepressant Urine NEGATIVE (NEGATIVE)
== END 2024-08-27 14:53 | disposition home or self-care (01) ==
LOC: LAB 14:52
PROVIDERS: PCP Nurse Practitioner; Visit Provider Nurse Practitioner
DX: F90.9 Attention-deficit hyperactivity disorder, unspecified type (principal)
CPT/HCPCS: 80307